=== PATIENT | female | born 1985 | race Hispanic/Latino ===

== ENCOUNTER 2018-11-21 19:44 | Inpatient (IN) | payer BC ==
[~2018-11-21] VITALS: Ht 157.5 cm; Wt 108.0 kg
--- OUTSIDE RECORDS SUMMARY | 2018-11-21 19:47 | XMS REPORT | Summary of Care ---
Author Author [facility] Organization [facility] Address Unknown Phone Unavailable Encounter NAJMA Griffith(JOCELYN) [id number] Date(s): 07/26/16 - 07/26/16 [facility] [address] [place] [address]- [phone] Discharge Diagnosis: Paresthesias Discharge Diagnosis: Ankle pain, left Discharge Diagnosis: Urinary tract infection in female Discharge Disposition: Home or Self Care Attending Physician: Bisi Seth DO Vital Signs Most recent to 1 2 oldest [Reference Range]: Height 160.02 cm (07/26/16 3:48 PM) Temperature Oral 98 DegF [96.4-99.1 DegF] (07/26/16 3:48 PM) Blood Pressure 105/54 mmHg 136/87 mmHg [90-140/60-90 mmHg] (07/26/16 5:38 PM) (07/26/16 3:48 PM) Respiratory Rate 17 BRMIN 17 BRMIN [14-20 BRMIN] (07/26/16 5:38 PM) (07/26/16 3:48 PM) Peripheral Pulse 87 bpm 95 bpm Rate [60-100 bpm] (07/26/16 5:38 PM) (07/26/16 3:48 PM) Weight 100 kg (07/26/16 3:48 PM) Body Mass Index 39.05 m2 (07/26/16 3:48 PM) Problem List Condition Effective Dates Status Health Status Informant Autoimmune Active hepatitis(Confirmed) Autoimmune Active hepatitis(Confirmed) Obesity(Confirmed) Active Allergies, Adverse Reactions, Alerts Substance Reaction Severity Status NKDA Active Medications Cipro 500 mg oral tablet 500 mg=1 tab, PO, Q12H, for UTI, X 3 day, # 6 tab, 0 Refill(s), Pharmacy: [facility] [id number] Start Date: 07/26/16 Stop Date: 07/29/16 Status: Ordered Results ELECTROLYTES Most recent to 1 oldest [Reference Range]: Sodium Lvl [135-145 139 mEq/L mEq/L] (07/26/16 5:07 PM) Potassium Lvl 3.9 mEq/L [3.5-5.1 mEq/L] (07/26/16 5:07 PM) Chloride Lvl [95-109 106 mEq/L mEq/L] (07/26/16 5:07 PM) CO2 [24-32 mEq/L] 23 mEq/L *LOW* (07/26/16 5:07 PM) AGAP [10.0-20.0 13.9 mEq/L mEq/L] (07/26/16 5:07 PM) CHEM PANEL Most recent to 1 oldest [Reference Range]: Creatinine Lvl 0.78 mg/dL [0.50-1.40 mg/dL] (07/26/16 5:07 PM) eGFR 102 mL/min/1.73m2 1 *NA* (07/26/16 5:07 PM) BUN [7-22 mg/dL] 6 mg/dL *LOW* (07/26/16 5:07 PM) B/C Ratio [6-25] 8 (07/26/16 5:07 PM) Glucose Lvl [70-99 91 mg/dL mg/dL] (07/26/16 5:07 PM) Total Protein 7.9 g/dL [6.4-8.4 g/dL] (07/26/16 5:07 PM) Albumin Lvl [3.5-5.0 3.2 g/dL g/dL] *LOW* (07/26/16 5:07 PM) Globulin [2.7-4.2 4.7 g/dL g/dL] *HI* (07/26/16 5:07 PM) A/G Ratio [0.7-1.6] 0.7 (07/26/16 5:07 PM) Calcium Lvl 8.6 mg/dL [8.5-10.5 mg/dL] (07/26/16 5:07 PM) ALT [0-65 unit/L] 31 unit/L (07/26/16 5:07 PM) AST [0-37 unit/L] 30 unit/L (07/26/16 5:07 PM) Alk Phos [39-136 71 unit/L unit/L] (07/26/16 5:07 PM) Bili Total [0.2-1.3 0.3 mg/dL mg/dL] (07/26/16 5:07 PM) 1Result Comment: The eGFR is calculated using the CKD-EPI formula. In most young, healthy individuals the eGFR will be >90 mL/min/1.73m2. The eGFR declines with age. An eGFR of 60-89 may be normal in some populations, particularly the elderly, for whom the CKD-EPI formula has not been extensively validated. Use of the eGFR is not recommended in the following populations: Individuals with unstable creatinine concentrations, including patients and those with serious co-morbid conditions. Patients with extremes in muscle mass or diet. The data above are obtained from the National Kidney Disease Education Program ( NKDEP) which additionally recommends that when the eGFR is used in patients with extremes of body mass index for purposes of drug dosing, the eGFR should be mul tiplied by the estimated BMI. CARDIAC ENZYMES Most recent to 1 oldest [Reference Range]: Total CK [12-191 82 unit/L unit/L] (07/26/16 5:07 PM) CK MB [0.5-3.6 <0.5 ng/mL ng/mL] (07/26/16 5:07 PM) CK MB Index <0.6 [0.0-2.5] (07/26/16 5:07 PM) Troponin-I <0.02 ng/mL [0.00-0.40 ng/mL] (07/26/16 5:07 PM) URINE AND STOOL Most recent to 1 oldest [Reference Range]: UA Turbidity [Clear] Clear (07/26/16 5:07 PM) UA Color [Yellow] Yellow *NA* (07/26/16 5:07 PM) UA pH [5.0-8.0] 5.0 (07/26/16 5:07 PM) UA Spec Grav 1.014 [<=1.030] (07/26/16 5:07 PM) UA Glucose [Negative Negative mg/dL mg/dL] *NA* (07/26/16 5:07 PM) UA Blood [Negative] Moderate *ABN* (07/26/16 5:07 PM) UA Ketones [Negative Negative mg/dL mg/dL] *NA* (07/26/16 5:07 PM) UA Protein [Negative Negative mg/dL mg/dL] (07/26/16 5:07 PM) UA Urobilinogen <=1.0 mg/dL [0.1-1.0 mg/dL] *NA* (07/26/16 5:07 PM) UA Bili [Negative] Negative *NA* (07/26/16 5:07 PM) UA Leuk Est Trace [Negative] *ABN* (07/26/16 5:07 PM) UA Nitrite Negative [Negative] (07/26/16 5:07 PM) UA WBC [0-5 /HPF] 6 /HPF *HI* (07/26/16 5:07 PM) UA RBC [0-2 /HPF] 1 /HPF (07/26/16 5:07 PM) UA Sq Epi [Few /LPF] Few /LPF *NA* (07/26/16 5:07 PM) HEMATOLOGY Most recent to 1 oldest [Reference Range]: WBC [3.7-10.4 K/CMM] 10.2 K/CMM (07/26/16 5:07 PM) RBC [4.20-5.40 5.06 M/CMM M/CMM] (07/26/16 5:07 PM) Hgb [12.0-16.0 g/dL] 13.7 g/dL (07/26/16 5:07 PM) Hct [36.0-48.0 %] 42.4 % (07/26/16 5:07 PM) MCV [80.0-98.0 fL] 83.9 fL (07/26/16 5:07 PM) MCH [27.0-31.0 pg] 27.1 pg (07/26/16 5:07 PM) MCHC [32.0-36.0 32.3 g/dL g/dL] (07/26/16 5:07 PM) RDW [11.5-14.5 %] 13.2 % (07/26/16 5:07 PM) Platelet [133-450 175 K/CMM K/CMM] (07/26/16 5:07 PM) MPV [7.4-10.4 fL] 11.9 fL *HI* (07/26/16 5:07 PM) Segs [45.0-75.0 %] 62.2 % (07/26/16 5:07 PM) Lymphocytes 29.8 % [20.0-40.0 %] (07/26/16 5:07 PM) Monocytes [2.0-12.0 6.7 % %] (07/26/16 5:07 PM) Eosinophils [0.0-4.0 0.6 % %] (07/26/16 5:07 PM) Basophils [0.0-1.0 0.7 % %] (07/26/16 5:07 PM) Segs-Bands # 6.3 K/CMM [1.5-8.1 K/CMM] (07/26/16 5:07 PM) Lymphocytes # 3.0 K/CMM [1.0-5.5 K/CMM] (07/26/16 5:07 PM) Monocytes # [0.0-0.8 0.7 K/CMM K/CMM] (07/26/16 5:07 PM) Eosinophils # 0.1 K/CMM [0.0-0.5 K/CMM] (07/26/16 5:07 PM) Basophils # [0.0-0.2 0.1 K/CMM K/CMM] (07/26/16 5:07 PM) PT [12.0-14.7 12.9 seconds seconds] (07/26/16 5:07 PM) INR [0.85-1.17] 0.95 (07/26/16 5:07 PM) PTT [22.9-35.8 27.2 seconds seconds] (07/26/16 5:07 PM) Immunizations No data available for this section Procedures No data available for this section Social History Social History Type Response Smoking Status Never smoker; Ready to change: No; Concerns about tobacco use in household: No; Exposure to Tobacco Smoke None; Cigarette Smoking Last 365 Days No; Reg Smoking Cessation Counseling No Assessment and Plan No data available for this section
--- OUTSIDE RECORDS SUMMARY | 2018-11-21 19:47 | XMS REPORT | Summary of Care ---
Author Author [facility] Outpatient Imaging [facility] Outpatient Imaging [facility] Address Unknown Phone Unavailable Encounter HQ Gladis(FIN) [id number] Date(s): 03/03/18 - 03/03/18 [facility] Outpatient Imaging [facility] [address], [address] [place] [phone] Encounter Diagnosis Other specified disorders of the skin and subcutaneous tissue (Final) - 03/07/18 Other specified abnormal findings of blood chemistry (Final) - Autoimmune hepatitis (Final) - Discharge Disposition: Home or Self Care Attending Physician: Allie Umanzor DO Referring Physician: Allie Umanzor DO Vital Signs No data available for this section Problem List Condition Effective Dates Status Health Status Informant Autoimmune Active hepatitis(Confirmed) Autoimmune Active hepatitis(Confirmed) Personal history of Active immunosuppressive therapy(Confirmed) LFTs Active abnormal(Confirmed) Obesity(Confirmed) Active Allergies, Adverse Reactions, Alerts Substance Reaction Severity Status NKDA Active Medications No data available for this section Results No data available for this section Immunizations No data available for this section Procedures Procedure Date Related Diagnosis Body Site Status Tonsillectomy and adenoidectomy [address] Com[address]opsy Completed CT of brain Completed EKG Completed EMG - Electromyography Completed MRI of head and cervical spine Completed Social History Social History Type Response Substance Abuse Use: None. Alcohol Current, Frequency: 1-2 times per year. Smoking Status Never smoker; Ready to change: No; Concerns about tobacco use in household: No; Exposure to Tobacco Smoke None; Cigarette Smoking Last 365 Days No; Reg Smoking Cessation Counseling No entered on: 07/23/18 Assessment and Plan No data available for this section
--- OUTSIDE RECORDS SUMMARY | 2018-11-21 19:47 | XMS REPORT | Summary of Care ---
Author Author [facility] Outpatient Imaging - [facility] Outpatient [facility] [place] Address Unknown Phone Unavailable Encounter HQ Docr_mat(FIN) [id number] Date(s): 12/20/15 - 12/20/15 [facility] Outpatient Imaging [facility] [address] [address] [place], [address] [phone] Discharge Disposition: Home Attending Physician: Mei Peña MD Vital Signs No data available for this section Problem List No data available for this section Allergies, Adverse Reactions, Alerts Substance Reaction Severity Status NKDA Active Medications No data available for this section Results No data available for this section Immunizations No data available for this section Procedures No data available for this section Social History No data available for this section Assessment and Plan No data available for this section
--- OUTSIDE RECORDS SUMMARY | 2018-11-21 19:47 | XMS REPORT | Summary of Care ---
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) - 09/04/17 Morbid (severe) obesity due to excess calories (Final) - Body mass index (BMI) 40.0-44.9, adult (Final) - Discharge Disposition: Home or Self Care Attending Physician: Mei Peña MD Vital Signs [...] Procedure Date Related Diagnosis Body Site Status CT of brain Completed EKG Completed EMG - Electromyography Completed MRI of head and cervical spine Completed Social History Social History Type Response Smoking Status Never smoker; Ready to change: No; Concerns about tobacco use in household: No; Exposure to Tobacco Smoke None; Cigarette Smoking Last 365 Days No; Reg Smoking Cessation Counseling No entered on: 06/30/17 Assessment and Plan No data available for this section
--- OUTSIDE RECORDS SUMMARY | 2018-11-21 19:47 | XMS REPORT | Summary of Care ---
Author Author [facility] Organization [facility] Address Unknown Phone Unavailable Encounter HQ Docr_mat(FIN) [id number] Date(s): 10/09/16 - 10/09/16 [facility] [address] [place] [address]- Discharge Disposition: Home or Self Care Attending Physician: Dayanara Johnson MD Referring Physician: Dayanara Johnson MD Vital Signs No data available for [...]
--- OUTSIDE RECORDS SUMMARY | 2018-11-21 19:47 | XMS REPORT | Summary of Care ---
Author Author [facility] Organization [facility] Address Unknown Phone Unavailable Encounter NAJMA Griffith(JOCELYN) [id number] Date(s): 03/07/16 - 03/07/16 [facility] [address] [place] [address]- [facility] [phone] Discharge Disposition: Home or Self Care Attending Physician: Eric Du MD Referring Physician: Eric Du MD Vital Signs Most recent to 1 oldest [Reference Range]: Height 160.02 cm (03/07/16 11:36 AM) Blood Pressure 110/78 mmHg [90-140/60-90 mmHg] (03/07/16 11:36 AM) Peripheral Pulse 94 bpm Rate [60-100 bpm] (03/07/16 11:36 AM) Weight 91.818 kg (03/07/16 11:36 AM) Body Mass Index 35.86 m2 (03/07/16 11:36 AM) Problem List Condition Effective Dates Status Health Status Informant Autoimmune Active hepatitis(Confirmed) Obesity(Confirmed) Active Allergies, Adverse Reactions, Alerts Substance Reaction Severity Status NKDA Active Medications azaTHIOprine 50 mg oral tablet 50 mg=1 tab, PO, Daily, # 30 tab, 0 Refill(s) Start Date: 03/07/16 Status: Ordered Necon 1/35 oral tablet 1 tab, PO, Daily, # 28 tab, 0 Refill(s) Start Date: 03/07/16 Status: Ordered predniSONE 20 mg oral tablet 20 mg=1 tab, PO, Daily, 0 Refill(s) Start Date: 03/07/16 Stop Date: 03/12/16 Status: Ordered predniSONE 5 mg oral tablet 20 mg=4 tab, PO, Daily, # 120 tab, 1 Refill(s), Pharmacy: [id number] Start Date: 03/07/16 Status: Ordered Results No data available for this section [...]
--- OUTSIDE RECORDS SUMMARY | 2018-11-21 19:47 | XMS REPORT | Summary of Care ---
Author Author [facility] Outpatient Imaging [facility] Outpatient Imaging - [place] Address Unknown Phone Unavailable Encounter HQ Gladis(FIN) [id number] Date(s): 03/12/18 - 03/12/18 [facility] Outpatient Imaging [facility] [address], [address] [place] [phone] Encounter Diagnosis Other specified abnormal findings of blood chemistry (Final) - 03/17/18 Autoimmune hepatitis (Final) - Discharge Disposition: Home or Self Care Attending Physician: Eric Du MD Referring Physician: Eric Du MD Vital Signs No data available for [...]
--- OUTSIDE RECORDS SUMMARY | 2018-11-21 19:47 | XMS REPORT | Summary of Care ---
Author Author [facility] Outpatient Imaging [facility] Outpatient Imaging [facility] Address Unknown Phone Unavailable Encounter HQ Docr_mat(FIN) [id number] Date(s): 08/05/16 - 08/05/16 [facility] Outpatient Imaging [facility] [address], [address] [place] [phone] Discharge Disposition: Home or Self Care Attending [...]
--- OUTSIDE RECORDS SUMMARY | 2018-11-21 19:47 | XMS REPORT | Summary of Care ---
Author Author [facility] Outpatient Imaging - [place] Organization [facility] [place] Address Unknown Phone Unavailable Encounter HQ Gladis(FIN) [id number] Date(s): 09/01/17 - 09/01/17 [facility] Outpatient Imaging - [place] [address] [place] [phone] Discharge Disposition: Home or Self Care Attending [...]
--- OUTSIDE RECORDS SUMMARY | 2018-11-21 19:47 | XMS REPORT | Summary of Care ---
Author Author [facility] Organization [facility] Address Unknown Phone Unavailable Encounter HQ Gladis(JOCELYN) [id number] Date(s): 01/29/18 - 01/29/18 [facility] [address] [place] [address]- [facility] [phone] Discharge Disposition: Home or Self Care Attending Physician: Eric Du MD Referring Physician: Eric Du MD Vital Signs Most recent to 1 oldest [Reference Range]: Height 157.48 cm (01/29/18 11:59 AM) Blood Pressure 129/83 mmHg [90-140/60-90 mmHg] (01/29/18 11:59 AM) Peripheral Pulse 90 bpm Rate [60-100 bpm] (01/29/18 11:59 AM) Weight 113.636 kg (01/29/18 11:59 AM) Body Mass Index 45.82 m2 (01/29/18 11:59 AM) Problem List Condition Effective Dates Status Health Status Informant Autoimmune Active hepatitis(Confirmed) Autoimmune Active hepatitis(Confirmed) Personal history of Active immunosuppressive therapy(Confirmed) LFTs Active abnormal(Confirmed) Obesity(Confirmed) Active Allergies, Adverse Reactions, Alerts Substance Reaction Severity Status NKDA Active Medications No Known Medications Results No data available for this section [...] Reg Smoking Cessation Counseling No entered on: 01/29/18 Assessment and Plan No data available for this section
--- OUTSIDE RECORDS SUMMARY | 2018-11-21 19:47 | XMS REPORT | Summary of Care ---
Author Author [facility] Organization [facility] Address Unknown Phone Unavailable Encounter NAJMA Griffith(JOCELYN) [id number] Date(s): 04/10/18 - 04/10/18 [facility] [address] [place] [address]- Encounter Diagnosis Anal fistula (Final) - 04/20/18 Other hemorrhoids (Final) - Autoimmune hepatitis (Final) - Major depressive disorder, single episode, unspecified (Final) - Discharge Disposition: Home or Self Care Attending Physician: Susana Urias V Referring Physician: Susana Urias V Vital Signs 1 2 3 Most recent to oldest [Reference Range]: 160.02 cm (03/30/18 7:25 AM) Height 98.2 DegF (03/30/18 7:28 AM) Temperature Oral [96.4-99.1 DegF] 128/76 mmHg (04/10/18 1:15 PM) 125/83 mmHg (04/10/18 12:41 PM) 121/82 mmHg (04/10/18 12:26 PM) Blood Pressure [90-140/60-90 mmHg] 23 BRMIN *HI* (04/10/18 12:41 PM) 17 BRMIN (04/10/18 12:26 PM) 12 BRMIN *LOW* (04/10/18 12:11 PM) Respiratory Rate [14-20 BRMIN] 113 bpm *HI* (04/10/18 10:26 AM) 84 bpm (03/30/18 7:28 AM) Peripheral Pulse Rate [60-100 bpm] 111.364 kg (03/30/18 7:25 AM) Weight 43.49 m2 (03/30/18 7:25 AM) Body Mass Index Problem List Condition Effective Dates Status Health Status Informant Autoimmune Active hepatitis(Confirmed) Autoimmune Active hepatitis(Confirmed) Personal history of Active immunosuppressive therapy(Confirmed) LFTs Active abnormal(Confirmed) Obesity(Confirmed) Active Allergies, Adverse Reactions, Alerts Substance Reaction Severity Status NKDA Active Medications ANES albuterol 0.083% inhalation solution 2.49 mg, Route: NEB, Q20Min, Dosing Weight 111.364, kg, PRN Wheezing, Priority: STAT, Start date: 04/10/18 12:13:00 CDT, Duration: 30 day, Stop date: 05/10/18 1 2:12:00 CDT Start Date: 04/10/18 Stop Date: 04/10/18 Status: Discontinued ANES dexamethasone 4 mg, Route: IVP, ONCE, Dosing Weight 111.364, kg, PRN Nausea & Vomiting, Start date: 04/10/18 12:13:00 CDT Start Date: 04/10/18 Stop Date: 04/10/18 Status: Discontinued ANES fentaNYL 50 microgram, Route: IVP, Q5Min, Dosing Weight 111.364, kg, PRN Pain Score 7-10, Priority: Routine, Start date: 04/10/18 12:13:00 CDT, Duration: 2 doses or time s, Stop date: Limited # of times Start Date: 04/10/18 Stop Date: 04/10/18 Status: Discontinued ANES fentaNYL 25 microgram, Route: IVP, Q5Min, Dosing Weight 111.364, kg, PRN Pain Score 4-6, Priority: Routine, Start date: 04/10/18 12:13:00 CDT, Duration: 4 doses or times , Stop date: Limited # of times Start Date: 04/10/18 Stop Date: 04/10/18 Status: Discontinued ANES flumazenil 0.2 mg, Route: IVP, PRN, Dosing Weight 111.364, kg, PRN Benzodiazepine Reversal, Initial dose, Start date: 04/10/18 12:13:00 CDT, Duration: 30 day, Stop date: 0 05/10/18 12:12:00 CDT Start Date: 04/10/18 Stop Date: 04/10/18 Status: Discontinued ANES naloxone 0.4 mg, Route: IVP, Q2MIN, Dosing Weight 111.364, kg, PRN Narcotic Reversal, Sta rt date: 04/10/18 12:13:00 CDT, Duration: 8 doses or times, Stop date: Limited # of times Start Date: 04/10/18 Stop Date: 04/10/18 Status: Discontinued ANES ondansetron 4 mg, Route: IVP, ONCE, Dosing Weight 111.364, kg, PRN Nausea & Vomiting, Start date: 04/10/18 12:13:00 CDT Start Date: 04/10/18 Stop Date: 04/10/18 Status: Discontinued ANES oxyCODONE 2.5 mg, Route: PO, Drug form: LIQ, Q4H, Dosing Weight 111.364, kg, PRN Pain Scor e 4-6, Start date: 04/10/18 12:13:00 CDT, Duration: 30 day, Stop date: 05/10/18 12:12:00 CDT Start Date: 04/10/18 Stop Date: 04/10/18 Status: Discontinued ANES oxyCODONE 5 mg, Route: PO, Drug form: LIQ, Q4H, Dosing Weight 111.364, kg, PRN Pain Score 7-10, Start date: 04/10/18 12:13:00 CDT, Duration: 30 day, Stop date: 05/10/18 1 2:12:00 CDT Start Date: 04/10/18 Stop Date: 04/10/18 Status: Discontinued dexamethasone (ANES) Route: IV, Drug form: INJ, ONCE, Stop date: 04/10/18 11:53:00 CDT Start Date: 04/10/18 Stop Date: 04/10/18 Status: Completed esmolol (ANES) Route: IV, Drug form: INJ, ONCE, Stop date: 04/10/18 11:55:00 CDT Start Date: 04/10/18 Stop Date: 04/10/18 Status: Completed Exparel 266 mg, Route: InFILtration(local), Dosing Weight 111.364, kg, ONCE, Start date: 04/10/18 9:32:00 CDT, Stop date: 04/10/18 9:32:00 CDT Start Date: 04/10/18 Stop Date: 04/10/18 Status: Discontinued fentaNYL (ANES) Route: IV, Drug form: INJ, ONCE, Stop date: 04/10/18 11:53:00 CDT Start Date: 04/10/18 Stop Date: 04/10/18 Status: Completed glycopyrrolate (ANES) Route: IV, Drug form: INJ, ONCE, Stop date: 04/10/18 12:02:00 CDT Start Date: 04/10/18 Stop Date: 04/10/18 Status: Completed Lactated Ringers Injection IV (ANES) 1000 mL Route: IV, Total Volume: 1,000, Start date: 04/10/18 10:50:00 CDT, Stop date: 11:50:00 CDT Start Date: 04/10/18 Stop Date: 04/10/18 Status: Completed Lactated Ringers IV 1000 mL 1,000 mL, Rate: 25 ml/hr, Infuse over: 40 hr, Route: IV, Dosing Weight 111.364 k g, Total Volume: 1,000, Start date: 04/10/18 10:48:00 CDT, Duration: 30 day, Sto p date: 05/10/18 10:47:00 CDT, 2.27, m2 Start Date: 04/10/18 Stop Date: 04/10/18 Status: Discontinued lidocaine (ANES) Route: IV, Drug form: INJ, ONCE, Stop date: 04/10/18 11:53:00 CDT Start Date: 04/10/18 Stop Date: 04/10/18 Status: Completed metoprolol (ANES) Route: IV, Drug form: INJ, ONCE, Stop date: 04/10/18 11:55:00 CDT Start Date: 04/10/18 Stop Date: 04/10/18 Status: Completed midazolam (ANES) Route: IV, Drug form: SOLN, ONCE, Stop date: 04/10/18 11:48:00 CDT Start Date: 04/10/18 Stop Date: 04/10/18 Status: Completed neostigmine (ANES) Route: IV, Drug form: INJ, ONCE, Stop date: 04/10/18 12:02:00 CDT Start Date: 04/10/18 Stop Date: 04/10/18 Status: Completed ondansetron (ANES) Route: IV, Drug form: INJ, ONCE, Stop date: 04/10/18 11:53:00 CDT Start Date: 04/10/18 Stop Date: 04/10/18 Status: Completed oxyCODONE 5 mg oral tablet 5 mg=1 tab, PO, Q6H, PRN Pain, X 7 day, # 20 tab, 0 Refill(s) Start Date: 04/10/18 Stop Date: 04/17/18 Status: Completed propofol (ANES) Route: IV, Drug form: INJ, ONCE, Stop date: 04/10/18 11:53:00 CDT Start Date: 04/10/18 Stop Date: 04/10/18 Status: Completed rocuronium (ANES) Route: IV, Drug form: INJ, ONCE, Stop date: 04/10/18 11:53:00 CDT Start Date: 04/10/18 Stop Date: 04/10/18 Status: Completed scopolamine (ANES) Route: Transdermal, Drug form: ERFILM, ONCE, Stop date: 04/10/18 11:53:00 CDT Start Date: 04/10/18 Stop Date: 04/10/18 Status: Completed Results URINE CHEM Most recent to 1 oldest [Reference Range]: U Preg [Negative] Negative (04/10/18 9:31 AM) URINE AND STOOL Most recent to 1 oldest [Reference Range]: UA Turbidity [Clear] Marked *ABN* (03/30/18 7:55 AM) UA Color Yulissa *NA* (03/30/18 7:55 AM) UA pH [5.0-8.0] 5.0 (03/30/18 7:55 AM) UA Spec Grav 1.020 [<=1.030] (03/30/18 7:55 AM) UA Glucose [Negative Negative mg/dL mg/dL] *NA* (03/30/18 7:55 AM) UA Blood [Negative] Negative (03/30/18 7:55 AM) UA Ketones [Negative Negative mg/dL mg/dL] *NA* (03/30/18 7:55 AM) UA Protein [Negative Negative mg/dL mg/dL] (03/30/18 7:55 AM) UA Urobilinogen 4.0 mg/dL [0.1-1.0 mg/dL] *HI* (03/30/18 7:55 AM) UA Bili [Negative] Negative *NA* (03/30/18 7:55 AM) UA Leuk Est Negative [Negative] (03/30/18 7:55 AM) UA Nitrite Negative [Negative] (03/30/18 7:55 AM) UA WBC [0-5 /HPF] 9 /HPF *HI* (03/30/18 7:55 AM) UA RBC [0-2 /HPF] 2 /HPF (03/30/18 7:55 AM) UA Bacteria [None Moderate /HPF Seen /HPF] *ABN* (03/30/18 7:55 AM) UA Sq Epi [Few /LPF] Moderate /LPF *ABN* (03/30/18 7:55 AM) UA Mucus [None Seen Few /LPF /LPF] *NA* (03/30/18 7:55 AM) HEMATOLOGY Most recent to 1 oldest [Reference Range]: WBC [3.7-10.4 K/CMM] 10.6 K/CMM *HI* (03/30/18 7:55 AM) RBC [4.20-5.40 4.97 M/CMM M/CMM] (03/30/18 7:55 AM) Hgb [12.0-16.0 g/dL] 13.2 g/dL (03/30/18 7:55 AM) Hct [36.0-48.0 %] 39.8 % (03/30/18 7:55 AM) MCV [80.0-98.0 fL] 80.1 fL (03/30/18 7:55 AM) MCH [27.0-31.0 pg] 26.6 pg *LOW* (03/30/18 7:55 AM) MCHC [32.0-36.0 33.2 g/dL g/dL] (03/30/18 7:55 AM) RDW [11.5-14.5 %] 14.8 % *HI* (03/30/18 7:55 AM) MPV [7.4-10.4 fL] 11.8 fL *HI* (03/30/18 7:55 AM) Platelet [133-450 113 K/CMM K/CMM] *LOW* (03/30/18 7:55 AM) Segs [45.0-75.0 %] 58.8 % (03/30/18 7:55 AM) Lymphocytes 31.6 % [20.0-40.0 %] (03/30/18 7:55 AM) Monocytes [2.0-12.0 7.4 % %] (03/30/18 7:55 AM) Eosinophils [0.0-4.0 1.6 % %] (03/30/18 7:55 AM) Basophils [0.0-1.0 0.6 % %] (03/30/18 7:55 AM) Neutrophils # 6.2 K/CMM [1.5-8.1 K/CMM] (03/30/18 7:55 AM) Lymphocytes # 3.3 K/CMM [1.0-5.5 K/CMM] (03/30/18 7:55 AM) Monocytes # [0.0-0.8 0.8 K/CMM K/CMM] (03/30/18 7:55 AM) Eosinophils # 0.2 K/CMM [0.0-0.5 K/CMM] (03/30/18 7:55 AM) Basophils # [0.0-0.2 0.1 K/CMM K/CMM] (03/30/18 7:55 AM) PT [12.0-14.7 13.7 seconds seconds] (03/30/18 7:55 AM) INR [0.85-1.17] 1.05 (03/30/18 7:55 AM) PTT [22.9-35.8 27.3 seconds seconds] (03/30/18 7:55 AM) Immunizations No data available for this section [...]
--- OUTSIDE RECORDS SUMMARY | 2018-11-21 19:47 | XMS REPORT | Summary of Care ---
Author Author [facility] Organization [facility] Address Unknown Phone Unavailable Encounter NAJMA Griffith(JOCELYN) [id number] Date(s): 11/21/16 - 11/21/16 [facility] [address] [place] [address]- [facility] [phone] Discharge Disposition: Home or Self Care Attending Physician: Eric Du MD Referring Physician: Eric Du MD Vital Signs Most recent to 1 oldest [Reference Range]: Height 160.02 cm (11/21/16 3:11 PM) Blood Pressure 117/80 mmHg [90-140/60-90 mmHg] (11/21/16 3:11 PM) Respiratory Rate 16 BRMIN [14-20 BRMIN] (11/21/16 3:11 PM) Peripheral Pulse 101 bpm Rate [60-100 bpm] *HI* (11/21/16 3:11 PM) Weight 104.091 kg (11/21/16 3:11 PM) Body Mass Index 40.65 m2 (11/21/16 3:11 PM) Problem List Condition Effective Dates Status Health Status Informant Autoimmune Active hepatitis(Confirmed) Autoimmune Active hepatitis(Confirmed) Obesity(Confirmed) Active Allergies, Adverse Reactions, Alerts Substance Reaction Severity Status NKDA Active Medications No Known Medications Results No data available for this section Immunizations No data available for this section Procedures Procedure Date Related Diagnosis Body Site CT of brain EKG EMG - Electromyography MRI of head and cervical spine Social History Social History Type Response Smoking Status Never smoker; Ready to change: No; Concerns about tobacco use in household: No; Exposure to Tobacco Smoke None; Cigarette Smoking Last 365 Days No; Reg Smoking Cessation Counseling No Assessment and Plan No data available for this section
--- OUTSIDE RECORDS SUMMARY | 2018-11-21 19:47 | XMS REPORT | Summary of Care ---
Author Author [facility] Address Unknown Phone Unavailable Encounter NAJMA Griffith(FIN) [id number] Date(s): 06/06/17 - 06/06/17 [facility] Outpatient Imaging [facility] [address], [address] [place] [phone] Discharge Disposition: Home or Self Care Attending [...]
--- OUTSIDE RECORDS SUMMARY | 2018-11-21 19:47 | XMS REPORT | Summary of Care ---
Author Author [facility] Organization [facility] Address Unknown Phone Unavailable Encounter NAJMA Griffith(JOCELYN) [id number] Date(s): 06/30/17 - 06/30/17 [facility] [address] [place], [place] [address] [phone] Discharge Disposition: Home or Self Care Attending Physician: Eric Du MD Referring Physician: Eric Du MD Vital Signs 1 2 3 Most recent to oldest [Reference Range]: 160.02 cm (06/30/17 9:41 AM) Height 116/73 mmHg (06/30/17 2:00 PM) 109/70 mmHg (06/30/17 1:45 PM) 109/69 mmHg (06/30/17 1:30 PM) Blood Pressure [90-140/60-90 mmHg] 17 BRMIN (06/30/17 2:00 PM) 20 BRMIN (06/30/17 1:45 PM) 20 BRMIN (06/30/17 1:30 PM) Respiratory Rate [14-20 BRMIN] 100 kg (06/30/17 9:41 AM) Weight 39.05 m2 (06/30/17 9:41 AM) Body Mass Index Problem List Condition Effective Dates Status Health Status Informant Autoimmune Active hepatitis(Confirmed) Autoimmune Active hepatitis(Confirmed) Personal history of Active immunosuppressive therapy(Confirmed) LFTs Active abnormal(Confirmed) Obesity(Confirmed) Active Allergies, Adverse Reactions, Alerts Substance Reaction Severity Status NKDA Active Medications fentaNYL 50 microgram, Route: IV, ONCE, Dosing Weight 100, kg, Start date: 06/30/17 10:55 :00 [employer], Stop date: 06/30/17 10:55:00 [employer]NAGER [employer], Start Date: 06/30/17 Stop Date: 06/30/17 Status: Completed fentaNYL 50 microgram, Route: IV, ONCE, Dosing Weight 100, kg, Start date: 06/30/17 11:00 :00 [employer]NAGER [employer], Stop date: 06/30/17 11:00:00 [employer]NAGER [employer], Start Date: 06/30/17 Stop Date: 06/30/17 Status: Completed tramadol 50 mg oral tablet 50 mg, 1 tab, Route: PO, Drug form: TAB, ONCE, Dosing Weight 100, kg, Start date : 06/30/17 13:28:00 MANAGER ETHICS, Stop date: 06/30/17 13:28:00 [employer]NAGER [employer]ICS Start Date: 06/30/17 Stop Date: 06/30/17 Status: Completed Versed 1 mg, Route: IV, ONCE, Dosing Weight 100, kg, Start date: 06/30/17 11:00:00 MANAGER ETHICS, Stop date: 06/30/17 11:00:00 MANAGER [employer]ICS Start Date: 06/30/17 Stop Date: 06/30/17 Status: Completed Versed 1 mg, Route: IV, ONCE, Dosing Weight 100, kg, Start date: 06/30/17 10:55:00 MANAGER ETHICS, Stop date: 06/30/17 10:55:00 MANAGER [employer]ICS Start Date: 06/30/17 Stop Date: 06/30/17 Status: Completed Results URINE CHEM Most recent to 1 oldest [Reference Range]: U Preg [Negative] Negative (06/30/17 9:49 AM) Immunizations No data available for this section Procedures Procedure Date Related Diagnosis Body Site Biopsy of liver, needle; percutaneous 06/30/17 Fine needle aspiration; with imaging guidance 06/30/17 CT of brain EKG EMG - Electromyography MRI of head and cervical spine Social History Social History Type Response Smoking Status Never smoker; Ready to change: No; Concerns about tobacco use in household: No; Exposure to Tobacco Smoke None; Cigarette Smoking Last 365 Days No; Reg Smoking Cessation Counseling No Assessment and Plan Extracted from: Title: Clinical Document Author: Eliecer Peck MD Date: 06/30/17 Interventional Radiology History and Physical History of Present Illness: LN lneck and elevated kiver enzymes Past Medical History No qualifying data available Past Surgical History CT of brain EMG - Electromyography MRI of head and cervical spine EKG Social History Tobacco Details: Use: Never smoker. Ready to change: No. Household tobacco concerns: No. Tobacco smoke exposure: None. Did the Patient Smoke Cigarettes Anytime During the Last 365 Days? No. Cessation Counseling Provided? No. Family History Father: High blood pressure Mother: Thyroid disease Allergies Reviewed Allergies: NKDA Current Medications Scheduled Meds: None Unscheduled Meds: None PRN Meds: None One Time Meds: None Continuous Infusions: None Labs (no lab data in past 24 hours) Review of Systems Constitutional Symptoms: no fever, no weight loss, no weight gain, no fatigue, no malaise Eyes: no diplopia, no blurred vision, no redness, no discharge, no loss of vision Ears, Nose, Mouth, Throat: no dysphagia, no odynophagia, no otalgia, no deafness, no rhinorrhea Cardiovascular: no chest pain, no SOB, no WALTERS, no orthopnea, no PND, exercise tolerated, no palpitations Respiratory: same as CVS, no cough, no hemoptysis Gastrointestinal: no NVD, no BPR, no dark stool, no constipation, no abdominal pain Genitourinary: no dysuria, no frequency, no urgency, no nocturia, no incontinence Musculoskeletal: no arthralgia, no myalgia, no stiffness Integumentary: (skin and/or breast): no rash, no hives, no breast pain, no mass, no nipple dc Neurological: no weakness, no headache, no seizure, no dizziness, no tingling, no numbness Psychiatric: no anxiety, no depression, no insomnia Endocrine: no polyuria, no polydipsia, no fatigue, no weight loss, no weight gain, no cold or heat intolerance, no palpitations Hematologic/Lymphatic: no bleeding, no bruising, no edema, no lumps (axilla groin neck) Allergic/Immunologic: no rash, no allergies, no fever, no chills Vital Signs VitalsTmp(F)Tmp(C)[id number] (no data in last 48 hours) 24 Hr Tmax: No Data AvailableVital Signs are the last 5 in the past 48 hours. 24 Hr Tmin: No Data AvailableWeights are the last 5 in 60 days, plus initial. DateWt(kg)Wt(lb)Ht(cm)Ht(in)MethodBMIBSA (no weights recorded) (no point of care glucose results charted in last 24 hours) (no score information charted) (no lines, tubes, drains information documented) (no surgical procedures documented) Physical Examination Gen: Active, alert, well developed, well nourished, in no acute distress Resp: Clear to auscultation s CV: RRR, with Abd: Soft, non-tender, non-distended, BS present, no palpable masses or HSM Neuro: CNII-XII intact, DT Assessment/Plan: non target liver biopsy and biopsy lymph node in neck Addendum labs from april 2017 ok plt 107k and inr .9 by Eliecer Peck MD on 06/30/2017 09:32
--- OUTSIDE RECORDS SUMMARY | 2018-11-21 19:47 | XMS REPORT | Summary of Care ---
Author Author [facility] Organization [facility] Address Unknown Phone Unavailable Encounter NAJMA Griffith(JOCELYN) [id number] Date(s): 06/06/16 - 06/06/16 [facility] [address] [place] [address]- [facility] [phone] Discharge Disposition: Home or Self Care Attending Physician: Eric Du MD Referring Physician: Eric Du MD Vital Signs Most recent to 1 oldest [Reference Range]: Height 160.02 cm (06/06/16 3:01 PM) Blood Pressure 120/79 mmHg [90-140/60-90 mmHg] (06/06/16 3:01 PM) Respiratory Rate 16 BRMIN [14-20 BRMIN] (06/06/16 3:01 PM) Peripheral Pulse 90 bpm Rate [60-100 bpm] (06/06/16 3:01 PM) Weight 101.136 kg (06/06/16 3:01 PM) Body Mass Index 39.5 m2 (06/06/16 3:01 PM) Problem List Condition Effective Dates Status Health Status Informant Autoimmune Active hepatitis(Confirmed) Obesity(Confirmed) Active Allergies, Adverse Reactions, Alerts Substance Reaction Severity Status NKDA Active Medications azaTHIOprine 50 mg oral tablet 50 mg=1 tab, PO, Daily, # 30 tab, 3 Refill(s), Pharmacy: [facility] Start Date: 04/26/16 Status: Ordered Results No data available for [...]
--- OUTSIDE RECORDS SUMMARY | 2018-11-21 19:47 | XMS REPORT | Summary of Care ---
Author Author [facility] Organization [facility] Address Unknown Phone Unavailable Encounter NAJMA Griffith(JOCELYN) [id number] Date(s): 05/22/17 - 05/22/17 [facility] [address] [place] [address]- [facility] [phone] Discharge Disposition: Home or Self Care Attending Physician: Eric Du MD Referring Physician: Eric Du MD Vital Signs Most recent to 1 oldest [Reference Range]: Height 160.02 cm (05/22/17 3:01 PM) Blood Pressure 112/77 mmHg [90-140/60-90 mmHg] (05/22/17 3:01 PM) Respiratory Rate 18 BRMIN [14-20 BRMIN] (05/22/17 3:01 PM) Peripheral Pulse 82 bpm Rate [60-100 bpm] (05/22/17 3:01 PM) Weight 100 kg (05/22/17 3:01 PM) Body Mass Index 39.05 m2 (05/22/17 3:01 PM) Problem List Condition Effective Dates Status Health Status Informant Autoimmune Active hepatitis(Confirmed) Autoimmune Active hepatitis(Confirmed) Personal history of Active immunosuppressive therapy(Confirmed) Obesity(Confirmed) Active Allergies, Adverse Reactions, Alerts Substance [...]
[2018-11-21 21:11] LABS: BASOPHILS % 0.2 % (0.0-1.0); EOSINOPHILS # (AUTO) 0.1 (0.0-0.4); EOSINOPHILS % 0.7 % (0.0-6.0); HEMATOCRIT 42.9 % (34.2-44.1); HEMOGLOBIN 13.8 g/dL (12.0-16.0); LYMPHOCYTES # (AUTO) 4.7 (1.0-3.2); LYMPHOCYTES % 27.2 % (18.0-39.1); MEAN CORPUSCULAR HGB CONC 32.2 g/dL (31-35); MEAN CORPUSCULAR VOLUME 80.8 fL (81-99); MONOCYTES % 5.5 % (4.4-11.3); NEUTROPHILS # (AUTO) 11.5 (2.1-6.9); PLATELET COUNT 171 x10e3/uL (140-360); RED BLOOD COUNT 5.31 x10e6/uL (3.6-5.1); RED CELL DISTRIBUTION WIDTH 13.3 % (11.7-14.4)
[2018-11-21 21:31] LABS: ALANINE AMINOTRANSFERASE 20 IU/L (0-55); ALBUMIN 3.2 g/dL (3.5-5.0); ALBUMIN/GLOBULIN RATIO 0.6 (0.8-2.0); ALKALINE PHOSPHATASE 84 IU/L (40-150); ANION GAP 13.4 mmol/L (8-16); BLOOD UREA NITROGEN 6 mg/dL (7-26); BUN/CREATININE RATIO 7 (6-25); CALCIUM 9.8 mg/dL (8.4-10.2); CARBON DIOXIDE 25 mmol/L (22-29); CHLORIDE 101 mmol/L (98-107); CREATININE, SERUM 0.82 mg/dL (0.57-1.11); EST GLOMERULAR FILTRATION RATE > 60 ML/MIN (60-); GLUCOSE 117 mg/dL (74-118); POTASSIUM 4.4 mmol/L (3.5-5.1); SODIUM 135 mmol/L (136-145)
[2018-11-21] MEDS ORDERED: SODIUM CHLORIDE 0.9% 50ML 50 ML ONE (22:25)
[2018-11-21] MEDS ORDERED: IOPAMIDOL 370 MG/ML 200 ML INFUS..BTL INJ ONE (22:25)
--- NOTE | 2018-11-21 22:31 | Diagnostic Imaging Report ---
History: Left neck swelling for 3 weeks. Comparison studies: None Technique: Axial, coronal and sagittal images from the skull base to the thoracic inlet. Coronal and sagittal images reconstructed from the axial data. Dose modulation, iterative reconstruction, and/or weight based adjustment of the mA/kV was utilized to reduce the radiation dose to as low as reasonably achievable. Intravenous contrast: 100 cc of Isovue 370. Findings: Soft tissues: Moderate asymmetric enlargement of left parotid gland associated with heterogeneous enhancement and focal subcentimeter peripheral rim-enhancing hypodensity, particularly in the posterior and lateral aspect of the superficial lobe of left parotid gland the largest peripheral rim-enhancing hypodensity measures approximately 7 mm in long axis. Mild periparotid subcutaneous soft tissue inflammatory changes. The airway is patent. Lymph nodes: Enlarged nonnecrotic, noncalcified left level 2A lymph node, approximately measures 3 cm in long axis. Vessels: Arteries and veins are patent. Glands (thyroid and submandibular): Normal in size and symmetric. No masses. No abnormality in right parotid gland. Orbits: No abnormalities. Paranasal sinuses: Clear. Temporal bones: No abnormalities. Skull base and facial bones: Intact. Cervical spine: No significant abnormality. IMPRESSION: 1. Moderately enlarged and heterogeneous enhancing left parotid gland with multifocal peripheral rim-enhancing hypodensity, raises concern for parotitis with intraparotid abscess. 2. Mild overlying periparotid cellulitis. 3. Enlarged left level 2A lymph node, is likely reactive. Signed by: Dr. Holly Biggs M.D. on 11/21/2018 10:27 PM
[2018-11-21] MEDS ORDERED: ONDANSETRON HCL INJ 2MG/ML 2ML 2 MG/ML VIAL IV STA (22:44)
[2018-11-21] MEDS ORDERED: CEFDINIR300 MG PO (22:49)
[2018-11-21] MEDS ORDERED: NORTREL1 EAC1 PO (22:49)
[2018-11-21] MEDS ORDERED: CLINDAMYCIN HC300 MG PO (22:49)
[2018-11-21] MEDS ORDERED: TACROLIMUS1 MG PO (22:49)
[2018-11-21] MEDS ORDERED: MYCOPHENOLATE250 MG PO (22:49)
[2018-11-21] MEDS ORDERED: ONDANSETRON HCL INJ 2MG/ML 2ML 2 MG/ML VIAL IV PRN (23:00)
[2018-11-21] MEDS ORDERED: MORPHINE SULFATE 2 MG/ML SYR 1ML IV PRN (23:00)
[2018-11-21] MEDS ORDERED: SODIUM CHLORIDE FLUSH 10 ML SYR INJ PRN (23:00)
[2018-11-21] MEDS ORDERED: ACETAMINOPHEN 1000 MG/100 ML IV STA (23:01)
[2018-11-21] MEDS: MORPHINE SULFATE INJ 4 MG/ML INJ 1ML IV PRN (23:02)
[2018-11-21] MEDS: PIPER-TAZ 3.375 GM 50 ML IV SCH (23:02)
--- NOTE | 2018-11-21 23:02 | NUR ---
DR HARLEY AWARE OF VS
--- OUTSIDE RECORDS SUMMARY | 2018-11-21 23:11 | XMS REPORT ---
Author [facility] Address Unknown Phone Unavailable Care Team Providers Care Psychiatry Resident Name Role Phone Jasmine HARLEY Unavailable Unavailable Problems This patient has no known problems. Allergies, Adverse Reactions, Alerts This patient has no known allergies or adverse reactions. Medications This patient has no known medications. Results Test Description Test Time Test Comments Text Results Atomic Results Result Comments CT SOFT TISSUE NECK W 2018-11-21 22:10:00 [place] [address] Patient Name: KLAUS HOFF MR #: [id number] : 1985 Age/Sex: 32/F Req #: [id number] Adm Physician: Ordered by: KYLAH BROWNE PUBLIC [employer] STAFF NURSE Report #: [id number] Location: ER Room/Bed: Procedure: [id number] CT/CT SOFT TISSUE NECK W Exam Date: 11/21/18 Exam Time: 2150 REPORT STATUS: Signed History: Left neck swelling for 3 weeks. Compar pedro pablo studies: None Technique: Axial, coronal and sagittal images from the skull base to the thoracic inlet. Coronal and sagittal images reconstructed from the axial data. Dose modulation, iterative reconstruction, and/or weight based adjustment of the mA/kV was utilized to reduce the radiation dose to as low as reasonably achievable. Intravenous contrast: 100 cc of Isovue 370. Findings: Soft tissues: Moderate asymmetric enlargement of left parotid gland associated with heterogeneous enhancement and focal subcentimeter peripheral rim-enhancing hypodensity, particularly in the posterior and lateral aspect of the superficial lobe of left parotid gland the largest peripheral rim-enhancing hypodensity measures approximately 7 mm in long axis. Mild periparotid subcutaneous soft tissue inflammatory changes. The airway is patent. Lymph nodes: Enlarged nonnecrotic, noncalcified left level 2A lymph node, approximately measures 3 cm in long axis. Vessels: Arteries and veins are patent. Glands (thyroid and submandibular): Normal in size and symmetric. No masses. No abnormality in right parotid gland. Orbits: No abnormalities. Paranasal sinuses: Clear. Temporal bones: No abnormalities. Skull base and facial bones: Intact. Cervical spine: No significant abnormality. IMPRESSION: 1. Moderately enlarged and heterogeneous enhancing left parotid gland with multifocal peripheral rim-enhancing hypodensity, raises concern for parotitis with intraparotid abscess. 2. Mild overlying periparotid cellulitis. 3. Enlarged left level 2A lymph node, is likely reactive. Signed by: Dr. Holly Biggs M.D. on 11/21/2018 10:27 PM Dictated By: HOLLY BIGGS MD 26 Transcribed By: JIAN on 11/21/182226 COPY TO: KYLAH BROWNE NP
--- OUTSIDE RECORDS SUMMARY | 2018-11-21 23:11 | XMS REPORT | Continuity of Care Document ---
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 10/28/2018 [facility] BEDDED OUTPATIENT/ TRANSJUGULAR LIVER BI Active 03/24/2018 [facility] Other specified abnormal findings of blood chemistry 03/18/2018 09/29/2018 [facility] UNK Active 03/16/2018 [facility] Other specified disorders of the skin and subcutaneous tissue 03/08/2018 [facility]/20[facility] Active 02/09/2018 [facility] PAIN Active 12/26/2017 [facility] oysterman use of systemic steroids 09/05/2017 12/08/2017 [facility]/ LIVER BIOPSY NONE TAR Active 06/26/2017 [facility] DDC-6 MONTH F/U VISIT Active 11/29/2016 [facility] DX: R20.9=UNSPECIFIED DISTURBANCES OF SK Active 10/01/2016 [facility] R20.9 - UNSPECIFIED DISTURBANCES OF SK Active 09/23/2016 K[facility] Wallace Discharge Diagnosis: Paresthesias 07/26/2016 07/29/2016 [facility] Discharge Diagnosis: Ankle pain, left 07/26/2016 07/29/2016 [facility] Discharge Diagnosis: Urinary tract infection in female 07/26/2016 07/29/2016 [facility] CHEST PAIN Active 07/26/2016 [facility] F/U Active 06/26/2016 [facility] 3 MONTH F/U Active 03/07/2016 [facility] BDDC - F/U Active 02/12/2016 [facility] R79.89 - OTHER SPECIFIED ABNORMAL FINDI Active 12/20/2015 [facility] Autoimmune hepatitis Active Problem 10/28/2018 KASH Ozuna,[facility] Obesity Active Problem 10/28/2018 KASH Ozuna,[facility] Morbid obesity due to excess calories 12/08/2017 KASH Wallace Body mass index 40.0-44.9, adult 12/08/2017 K[facility] Wallace Other hemorrhoids 10/28/2018 [facility] Autoimmune hepatitis 10/28/2018 KASH Ozuna,[facility] Major depressive disorder, single episode, unspecified 10/28/2018 [facility] Personal history of immunosuppressive therapy Active Problem 10/28/2018 [facility] [place] [place] LFTs abnormal Active Problem 10/28/2018 [facility] Spenceore,[facility], KASH Wallace,[facility] Medications Medication Details Route Status Patient Instructions Ordering Provider Order Date Source Naloxone 0.4 mg, Route: IVP, Q2MIN, Dosing Weight 111.364, kg, PRN Narcotic Reversal, Start date: 04/10/18 12:13:00 CDT, Duration: 8 doses or times, Stop date: Limited # of times Inactive 04/10/2018 [facility] Oxycodone 2.5 mg, Route: PO, Drug form: LIQ, Q4H, Dosing Weight 111.364, kg, PRN Pain Score 4-6, Start date: 04/10/18 12:13:00 CDT, Duration: 30 day, Stop date: 05/10/18 12:12:00 CDT Inactive 04/10/2018 [facility] Flumazenil 0.2 mg, Route: IVP, PRN, Dosing Weight 111.364, kg, PRN Benzodiazepine Reversal, Initial dose, Start date: 04/10/18 12:13:00 CDT, Duration: 30 day, Stop date: 05/10/18 12:12:00 CDT Inactive 04/10/2018 [facility] Fentanyl 50 microgram, Route: IVP, Q5Min, Dosing Weight 111.364, kg, PRN Pain Score 7-10, Priority: Routine, Start date: 04/10/18 12:13:00 CDT, Duration: 2 doses or times, Stop date: Limited # of times Inactive 04/10/2018 [facility] Albuterol 0.83 MG/ML Inhalant Solution 2.49 mg, Route: NEB, Q20Min, Dosing Weight 111.364, kg, PRN Wheezing, Priority: STAT, Start date: 04/10/18 12:13:00 CDT, Duration: 30 day, Stop date: 05/10/18 12:12:00 CDT Inactive 04/10/2018 [facility] Ondansetron 4 mg, Route: IVP, ONCE, Dosing Weight 111.364, kg, PRN Nausea & Vomiting, Start date: 04/10/18 12:13:00 CDT Inactive 04/10/2018 [facility] Dexamethasone 4 mg, Route: IVP, ONCE, Dosing Weight 111.364, kg, PRN Nausea & Vomiting, Start date: 04/10/18 12:13:00 CDT Inactive 04/10/2018 [facility] neostigmine (ANES) Route: IV, Drug form: INJ, ONCE, Stop date: 04/10/18 12:02:00 CDT Inactive 04/10/2018 [facility] glycopyrrolate (ANES) Route: IV, Drug form: INJ, ONCE, Stop date: 04/10/18 12:02:00 CDT Inactive 04/10/2018 [facility] Oxycodone Hydrochloride 5 MG Oral Tablet 5 mg=1 tab, PO, Q6H, PRN Pain, X 7 day, # 20 tab, 0 Refill(s) No Longer Active 04/10/2018 [facility] metoprolol (ANES) Route: IV, Drug form: INJ, ONCE, Stop date: 04/10/18 11:55:00 CDT Inactive 04/10/2018 [facility] esmolol (ANES) Route: IV, Drug form: INJ, ONCE, Stop date: 04/10/18 11:55:00 CDT Inactive 04/10/2018 [facility] dexamethasone (ANES) Route: IV, Drug form: INJ, ONCE, Stop date: 04/10/18 11:53:00 CDT Inactive 04/10/2018 [facility] ondansetron (ANES) Route: IV, Drug form: INJ, ONCE, Stop date: 04/10/18 11:53:00 CDT Inactive 04/10/2018 [facility] rocuronium (ANES) Route: IV, Drug form: INJ, ONCE, Stop date: 04/10/18 11:53:00 CDT Inactive 04/10/2018 [facility] propofol (ANES) Route: IV, Drug form: INJ, ONCE, Stop date: 04/10/18 11:53:00 CDT Inactive 04/10/2018 [facility] scopolamine (ANES) Route: Transdermal, Drug form: ERFILM, ONCE, Stop date: 04/10/18 11:53:00 CDT Inactive 04/10/2018 [facility] fentaNYL (ANES) Route: IV, Drug form: INJ, ONCE, Stop date: 04/10/18 11:53:00 CDT Inactive 04/10/2018 [facility] lidocaine (ANES) Route: IV, Drug form: INJ, ONCE, Stop date: 04/10/18 11:53:00 CDT Inactive 04/10/2018 [facility] midazolam (ANES) Route: IV, Drug form: SOLN, ONCE, Stop date: 04/10/18 11:48:00 CDT Inactive 04/10/2018 [facility] Lactated Ringers Injection IV (ANES) 1000 mL Route: IV, Total Volume: 1,000, Start date: 04/10/18 10:50:00 CDT, Stop date: 04/10/18 11:50:00 CDT Inactive 04/10/2018 [facility] Lactated Ringers IV 1000 mL 1,000 mL, Rate: 25 ml/hr, Infuse over: 40 hr, Route: IV, Dosing Weight 111.364 kg, Total Volume: 1,000, Start date: 04/10/18 10:48:00 CDT, Duration: 30 day, Stop date: 05/10/18 10:47:00 CDT, 2.27, m2 Inactive 04/10/2018 [facility] Exparel 266 mg, Route: InFILtration(local), Dosing Weight 111.364, kg, ONCE, Start date: 04/10/18 9:32:00 CDT, Stop date: 04/10/18 9:32:00 CDT Inactive 04/10/2018 [facility] tramadol hydrochloride 50 MG Oral Tablet 50 mg, 1 tab, Route: PO, Drug form: TAB, ONCE, Dosing Weight 100, kg, Start date: 06/30/17 13:28:00 MEDIA OPERATOR, Stop date: 06/30/17 13:28:00 MEDIA OPERATOR Inactive 06/30/2017 [facility] Versed 1 mg, Route: IV, ONCE, Dosing Weight 100, kg, Start date: 06/30/17 11:00:00 MEDIA OPERATOR, Stop date: 06/30/17 11:00:00 MEDIA OPERATOR Inactive 06/30/2017 [facility] Fentanyl 50 microgram, Route: IV, ONCE, Dosing Weight 100, kg, Start date: 06/30/17 11:00:00 MEDIA OPERATOR, Stop date: 06/30/17 11:00:00 MEDIA OPERATOR, Inactive 06/30/2017 [facility] Fentanyl 50 microgram, Route: IV, ONCE, Dosing Weight 100, kg, Start date: 06/30/17 10:55:00 MEDIA OPERATOR, Stop date: 06/30/17 10:55:00 MEDIA OPERATOR, Inactive 06/30/2017 [facility] Versed 1 mg, Route: IV, ONCE, Dosing Weight 100, kg, Start date: 06/30/17 10:55:00 MEDIA OPERATOR, Stop date: 06/30/17 10:55:00 MEDIA OPERATOR Inactive 06/30/2017 [facility] Ciprofloxacin 500 MG Oral Tablet [Cipro] 500 mg=1 tab, PO, Q12H, for UTI, X 3 day, # 6 tab, 0 Refill(s), Pharmacy: [facility] [id number] Active 07/26/2016 [facility] azaTHIOprine 50 mg oral tablet 50 mg=1 tab, PO, Daily, # 30 tab, 3 Refill(s), Pharmacy: [facility] [id number] Active 04/26/2016 [facility] predniSONE 5 mg oral tablet 20 mg=4 tab, PO, Daily, # 120 tab, 1 Refill(s), Pharmacy: [facility] [id number] Active 03/07/2016 [facility] azaTHIOprine 50 mg oral tablet 50 mg=1 tab, PO, Daily, # 30 tab, 0 Refill(s) Active 03/07/2016 [facility] predniSONE 20 mg oral tablet 20 mg=1 tab, PO, Daily, 0 Refill(s) Active 03/07/2016 [facility] {21 (Ethinyl Estradiol 0.035 MG / Norethindrone 1 MG Oral Tablet) / 7 (Inert Ingredients 1 MG Oral Tablet) } Pack [Necon 28 Day] 1 tab, PO, Daily, # 28 tab, 0 Refill(s) Active 03/07/2016 [facility] Allergies, Adverse Reactions, Alerts Substance Category Reaction Severity Reaction type Status Date Reported Comments Source Immunizations Immunization Date Given Site Status Last Updated Comments Source Results Order Name Results Value Reference Range Date Interpretation Comments Source Biopsy through a catheter VR Biopsy through a catheter VR STUDY: VIR imaging guided transjugular liver biopsy with pressures and free and wedged hepatic venogram. The pressures are both DATE: 05/08/2018 10:02 AM CDT INDICATION(S): Liver disease. The biopsy is needed to defines current status and the pressures are desired to see if there is a level of diseased to be more concerned about. PROCEDURE(S) PERFORMED: The right neck was sterilely prepped and draped. 1% lidocaine was infiltrated for local anesthesia. 21-gauge microstick needle was placed in the right internal jugular vein. The right internal jugular vein was shown to be patent with compression and noncompression images and images in the PACS. The needle in the vein was sent to the PACS. Over 0.018 inch wire 5-Yi sheath was placed. This was exchanged over 0.035 inch Bentson wire for a 9- Yi angled sheath and through that the biopsy device was passed into a right hepatic vein. Free and wedged hepatic venograms were obtained in this vein and then 3 passes for biopsy were made through the metal cannula with the side cutting needle. All sheaths were then removed and hemostasis accomplished by holding pressure. WOOD STAINER: [employer] MAILROOM MESSENGER(S): CONSENT: Written consent obtained after discussing the indications, procedure, potential benefits, alternatives and risks SEDATION/PAIN CONTROL: Moderate conscious sedation was administered by a dedicated nurse under my supervision. There was continuous monitoring of BP, pulse and oxygen saturation.. Sedation time 40 minutes. COMPLICATIONS: None ESTIMATED BLOOD LOSS: Minimal mL FLUOROSCOPIC TIME: Not available minutes. RADIATION DOSE: Not available mGy CONTRAST VOLUME: 90 mL Visipaque 320 FINDINGS: Free and wedged hepatic venograms are both normal. The free hepatic vein pressure is 18 mmHg and the wedged pressure was 20 mmHg. Therefore the portosystemic gradient is about 2 mmHg IMPRESSION: 1. Normal pressure gradient and normal venograms wedged and free PLAN/FOLLOW UP: Dr. Peck, IR Attending, was present for the procedure. 05/08/2018 - - Read by: Eliecer Peck MD Dictated Date/time: 05/08/18 13:20 Electronically Signed by: Eliecer Peck MD 05/11/18 16:11 FINAL REPORT [facility] URINE CHEM U Preg Negative (04/10/18 9:31 AM) Negative 04/10/2018 [facility] INR 1.05 0.85 - 1.17 03/30/2018 [facility] PT 13.7 s 12.0 - 14.7 03/30/2018 [facility] PTT 27.3 s 22.9 - 35.8 03/30/2018 [facility] RDW 14.8 % 11.5 - 14.5 03/30/2018 [facility] Platelet 113 K/CMM 133 - 450 03/30/2018 [facility] MPV 11.8 fL 7.4 - 10.4 03/30/2018 [facility] WBC 10.6 K/CMM 3.7 - 10.4 03/30/2018 [facility] RBC 4.97 M/CMM 4.20 - 5.40 03/30/2018 [facility] Hct 39.8 % 36.0 - 48.0 03/30/2018 [facility] MCV 80.1 fL 80.0 - 98.0 03/30/2018 [facility] Hgb 13.2 g/dL 12.0 - 16.0 03/30/2018 [facility] MCH 26.6 pg 27.0 - 31.0 03/30/2018 [facility] MCHC 33.2 g/dL 32.0 - 36.0 03/30/2018 [facility] Lymphocytes # 3.3 K/CMM 1.0 - 5.5 03/30/2018 [facility] Neutrophils # 6.2 K/CMM 1.5 - 8.1 03/30/2018 [facility] Eosinophils # 0.2 K/CMM 0.0 - 0.5 03/30/2018 [facility] HEMATOLOGY Basophils 0.6 % 0.0 - 1.0 03/30/2018 [facility] HEMATOLOGY Monocytes # 0.8 K/CMM 0.0 - 0.8 03/30/2018 [facility] HEMATOLOGY Basophils # 0.1 K/CMM 0.0 - 0.2 03/30/2018 [facility] HEMATOLOGY Eosinophils 1.6 % 0.0 - 4.0 03/30/2018 [facility] HEMATOLOGY Monocytes 7.4 % 2.0 - 12.0 03/30/2018 [facility] HEMATOLOGY Lymphocytes 31.6 % 20.0 - 40.0 03/30/2018 [facility] HEMATOLOGY Segs 58.8 % 45.0 - 75.0 03/30/2018 [facility] URINE AND STOOL UA Color Yulissa 03/30/2018 [facility] URINE AND STOOL UA Spec Grav 1.020 <=1.030 03/30/2018 [facility] URINE AND STOOL UA pH 5.0 5.0 - 8.0 03/30/2018 [facility] URINE AND STOOL UA Turbidity Marked *ABN* (03/30/18 7:55 AM) Clear 03/30/2018 [facility] URINE AND STOOL UA Blood Negative (03/30/18 7:55 AM) Negative 03/30/2018 [facility] URINE AND STOOL UA Bili Negative *NA* (03/30/18 7:55 AM) Negative 03/30/2018 [facility] URINE AND STOOL UA Ketones Negative mg/dL Negative mg/dL 03/30/2018 [facility] URINE AND STOOL UA Protein Negative mg/dL Negative mg/dL 03/30/2018 [facility] URINE AND STOOL UA Glucose Negative mg/dL Negative mg/dL 03/30/2018 [facility] URINE AND STOOL UA WBC 9 /HPF 0 - 5 03/30/2018 [facility] URINE AND STOOL UA Leuk Est Negative (03/30/18 7:55 AM) Negative 03/30/2018 [facility] URINE AND STOOL UA Sq Epi Moderate /LPF Few /LPF 03/30/2018 [facility] URINE AND STOOL UA Urobilinogen 4.0 mg/dL 0.1 - 1.0 03/30/2018 [facility] URINE AND STOOL UA Nitrite Negative (03/30/18 7:55 AM) Negative 03/30/2018 [facility] URINE AND STOOL UA RBC 2 /HPF 0 - 2 03/30/2018 [facility] URINE AND STOOL UA Bacteria Moderate /HPF None Seen /HPF 03/30/2018 [facility] URINE AND STOOL UA Mucus Few /LPF None Seen /LPF 03/30/2018 [facility] Liver w Liver vessels Doppler US Liver w Liver vessels Doppler US EXAM: US LIVER WITH LIVER VASCULAR DOPPLER DATE: 03/12/2018 7:54 AM CDT INDICATION: - R79.89 Other specified abnormal findings of blood chemistry, K75.4 Autoimmune hepatitis. Autoimmune hepatitis. ADDITIONAL INFORMATION: Previous liver biopsy in June 2017 reported benign findings as per the patient. COMPARISON: Ultrasound guided liver biopsy images of 06/30/2017. TECHNIQUE: Multiplanar grayscale, color Doppler and spectral Doppler ultrasound of the abdomen. FINDINGS: Liver: Craniocaudal length: 15.2 cm. Echogenicity: Mildly diffusely increased. Surface nodularity: Normal. Mass (size and location): None. Hepatic and portal vasculature: Hepatic artery: Patent with antegrade pulsatile flow. Resistive index: 0.51 Portal veins: Patent with normal hepatopetal monophasic flow. Hepatic veins: Patent with normal hepatofugal multiphasic flow. Splenic artery: Patent with antegrade pulsatile flow. Splenic vein: Patent with normal direction of flow. Bile ducts: Common bile duct diameter: 0.45 cm. Normal. Intrahepatic ducts: Normal. Gallbladder: Normal. Gallstones: None. Gallbladder sludge: None. Gallbladder wall: 0.22 cm. Pericholecystic fluid: None. Sonographic David sign: Absent. Pancreas: No abnormalities of the visualized portions of the pancreas are seen.Portions of the pancreatic tail are secured by overlying bowel gas. Spleen: Craniocaudal length: 9.3 cm. Mass or focal lesion (size and location): None. Right kidney: Size: 10.4 x 3.8 x 5.7 cm. Hydronephrosis: None. Echogenicity: Normal. Mass/Stone/Cyst (size and location): None. Abdominal aorta and IVC: Normal where visualized. Ascites: None. Pleural effusions: None. IMPRESSION: 1. Mild nonspecific increased liver echogenicity, a finding most commonly caused by mild fatty infiltration of the liver. 2. No Doppler/flow abnormalities. No evidence of portal hypertension. 03/12/2018 - - Read by: Martínez Santo MD Dictated Date/time: 03/12/18 08:52 Electronically Signed by: Martínez Santo MD 03/12/18 08:55 FINAL REPORT [facility] Pelvis w IV contrast CT Pelvis w IV contrast CT EXAM: CT PELVIS WITH CONTRAST DATE: 03/03/2018 10:30 AM CDT INDICATION: - L98.8 Other specified disorders of the skin and subcutaneous tissue ADDITIONAL INFORMATION: None. COMPARISON: None. TECHNIQUE: Volumetric CT acquisition of the pelvis after the intravenous administration contrast. Axial, coronal and sagittal reconstructions. Postcontrast phases: Venous and delayed. IV contrast: 100 cc Visipaque 320 Enteric contrast: Water. DLP: 1192 mGy-cm FINDINGS: Lines, tubes and hardware: None. Ureters: Normal where visualized. Bladder: Normal. Reproductive organs: No abnormalities of the uterus, ovaries, vagina are seen. Gastrointestinal tract: Included small bowel: Normal. Included colon: Normal. Rectum: Normal Anus: Normal. A linear abnormality is seen external to the right perirenal fascia in the right ischiorectal fossa as described below. Appendix: Normal. Peritoneum, mesentery and retroperitoneum: No free air, ascites or loculated fluid. Lymph nodes: Normal. Vasculature: Normal. Bones: No acute abnormality. Soft tissues: A linear area of soft tissue thickening/enhancement measuring 0.7 x 5.8 x 2.1 cm is seen in the left medial thigh and lateral to the inferior aspect of the perianal fascia within the right ischiorectal fossa. This finding appears to extend to the skin surface on image 45 series 2 and image 88 of series 5 with the inferior most aspect of this lesion not covered in the [id number] of this exam. No distinct communication with the anus or rectum is seen. No distinct fluid collection is seen. IMPRESSION: 1. Linear soft tissue density thickened linear enhancing density extending from the medial skin of the gluteal crease just distal to the anus on the right extending into the right ischiorectal fossa without distinct communication with the anus, rectum, or vagina. This finding likely represents a perianal fissure/sinus tract with no discrete fluid collection/abscess demonstrated. Correlation with physical exam is recommended. 2. No other abnormalities are detected. RECOMMENDATIONS: Correlation with physical examination of the anal and perianal region is recommended. 03/03/2018 - - Read by: Martínez Santo MD Dictated Date/time: 03/03/18 11:55 Electronically Signed by: Martínez Santo MD 03/03/18 12:07 FINAL REPORT [facility] Bone Density DXA [employer] MA Bone Density DXA [employer] MA BONE DENSITY ASSESSMENT: 09/01/2017 CLINICAL DATA: E66.01 Obesity, morbid, BMI 40.09-49.9, Z79.52 oysterman systemic steriod user. E66.01 Morbid (Severe) Obesity Due To Excess Calories, Z79.52 Marketing [employer] (Current) Use Of Systemic Steroids/E66.01 Morbid (Severe) Obesity Due To Excess Calories, Z79.52 Intermediate (Current) Use Of Systemic Steroids RISK FACTORS: oysterman use of corticosteroids. Black. FINDINGS: Bone density evaluation was performed 09/01/2017 on the right femur neck using a Hologic unit. The BMD average for the exam is 1.173 g/cm2. The T-score is 2.90 and the Z-score is 3.00. This matches the World Health Organization's criteria for normal bone density and places the patient within normal limits of fracture risk. An additional bone density evaluation was performed 09/01/2017 on the left femur neck using a Hologic unit. The BMD average for the exam is 1.132 g/cm2. The T- score is 2.50 and the Z-score is 2.70. This matches the World Health Organization's criteria for normal bone density and places the patient within normal limits of fracture risk. An additional bone density evaluation was performed 09/01/2017 on the right hip using a Hologic unit. The BMD average for the exam is 1.271 g/cm2. The T-score is 2.70 and the Z-score is 2.70. This matches the World Health Organization's criteria for normal bone density and places the patient within normal limits of fracture risk. An additional bone density evaluation was performed 09/01/2017 on the left hip using a Hologic unit. The BMD average for the exam is 1.267 g/cm2. The T-score is 2.70 and the Z-score is 2.70. This matches the World Health Organization's criteria for normal bone density and places the patient within normal limits of fracture risk. An additional bone density evaluation was performed 09/01/2017 on the AP L1-L4 region of spine using a Hologic unit. The BMD average for the exam is 1.128 g/cm2. The T-score is 0.70 and the Z-score is 0.80. This matches the World Health Organization's criteria for normal bone density and places the patient within normal limits of fracture risk. IMPRESSION: BONE DENSITY WITHIN NORMAL LIMITS Patient is at normal risk for fracture. This exam was interpreted at [id number] for JOSEPHINE Marie M.D. cm/penrad:09/01/2017 14:02:58 Recruiting Coordinator(s): Romi WHITE(R)(Ajay), [facility] - - Read by: Brian Santos MD Dictated Date/time: 09/01/17 14:02 Electronically Signed by: Brian Santos MD 09/01/17 14:02 FINAL REPORT [facility] URINE CHEM U Preg Negative (06/30/17 9:49 AM) Negative 06/30/2017 [facility] Guided Needle BX/Asp/Inj/NeedLoc US Guided Needle BX/Asp/Inj/NeedLoc US STUDY: Percutaneous liver biopsy nontargeted Percutaneous ultrasound-guided biopsy lymph node right DATE: 06/30/2017 10:33 AM MEDIA OPERATOR INDICATION(S): Rising liver enzymes, lymph node right neck PROCEDURE(S) PERFORMED: The patient's right upper quadrant was sterilely prepped and draped. 1% lidocaine was infiltrated for local anesthesia. The right upper quadrant was entered with a 17-gauge guiding needle and 2 passes made with a 18- gauge Bio-Pen's with throw of 33 mm. The neck was sterilely prepped and draped. 1% lidocaine was infiltrated for local anesthesia. About 5 passes were made with a 20-gauge spinal needle and submitted to cytopathology for analysis. WOOD STAINER: [employer] MAILROOM MESSENGER(S): CONSENT: Written consent obtained after discussing the indications, procedure, potential benefits, alternatives and risks SEDATION/PAIN CONTROL: Moderate conscious sedation was administered by a dedicated nurse under my supervision. There was continuous monitoring of BP, pulse and oxygen saturation.. Sedation time minutes. COMPLICATIONS: None ESTIMATED BLOOD LOSS: Minimal mL FLUOROSCOPIC TIME: minutes. RADIATION DOSE: mGy CONTRAST VOLUME: mL FINDINGS: The needle is seen in the liver for liver biopsy and postprocedure no perihepatic or intrahepatic hematoma is present. A small amount air is seen in the liver postbiopsy. For the lymph node the needle is seen in the lymph node in the right neck on all passes. The lymph node measures about 1 x 2.5 cm. No hematoma is seen around the lymph node postprocedure IMPRESSION: 1. Biopsy right neck lymph node performed. 2. Biopsy liver nontargeted performed PLAN/FOLLOW UP: I have talked with Dr. Emmanuel about the biopsy Dr. Peck, IR Attending, was present for the procedure. 06/30/2017 - - Read by: Eliecer Peck MD Dictated Date/time: 06/30/17 13:07 Electronically Signed by: Eliecer Peck MD 06/30/17 13:11 FINAL REPORT [facility] Liver biopsy guided US Liver biopsy guided US STUDY: Percutaneous liver biopsy nontargeted Percutaneous ultrasound-guided biopsy lymph node right DATE: 06/30/2017 10:33 AM MEDIA OPERATOR INDICATION(S): Rising liver enzymes, lymph node right neck PROCEDURE(S) PERFORMED: The patient's right upper quadrant was sterilely prepped and draped. 1% lidocaine was infiltrated for local anesthesia. The right upper quadrant was entered with a 17-gauge guiding needle and 2 passes made with a 18- gauge Bio-Pen's with throw of 33 mm. The neck was sterilely prepped and draped. 1% lidocaine was infiltrated for local anesthesia. About 5 passes were made with a 20-gauge spinal needle and submitted to cytopathology for analysis. WOOD STAINER: [employer] MAILROOM MESSENGER(S): CONSENT: Written consent obtained after discussing the indications, procedure, potential benefits, alternatives and risks SEDATION/PAIN CONTROL: Moderate conscious sedation was administered by a dedicated nurse under my supervision. There was continuous monitoring of BP, pulse and oxygen saturation.. Sedation time minutes. COMPLICATIONS: None ESTIMATED BLOOD LOSS: Minimal mL FLUOROSCOPIC TIME: minutes. RADIATION DOSE: mGy CONTRAST VOLUME: mL FINDINGS: The needle is seen in the liver for liver biopsy and postprocedure no perihepatic or intrahepatic hematoma is present. A small amount air is seen in the liver postbiopsy. For the lymph node the needle is seen in the lymph node in the right neck on all passes. The lymph node measures about 1 x 2.5 cm. No hematoma is seen around the lymph node postprocedure IMPRESSION: 1. Biopsy right neck lymph node performed. 2. Biopsy liver nontargeted performed PLAN/FOLLOW UP: I have talked with Dr. Emmanuel about the biopsy Dr. Peck, IR Attending, was present for the procedure. 06/30/2017 - - Read by: Eliecer Peck MD Dictated Date/time: 06/30/17 13:07 Electronically Signed by: Eliecer Peck MD 06/30/17 13:11 FINAL REPORT [facility] Pelvis w Pelvis Transvaginal US Pelvis w Pelvis Transvaginal US EXAM: US PELVIS TRANSABDOMINAL EXAM: US PELVIS TRANSVAGINAL DATE: 06/06/2017 12:47 PM CDT INDICATION: - N92.1 Excessive and frequent menstruation with irregular cycle ADDITIONAL INFORMATION: LMP: 05/29/2017; COMPARISON: None. TECHNIQUE: Multiplanar grayscale and color Doppler ultrasound images of the pelvis were obtained transabdominally through a distended urinary bladder followed by transvaginal examination postvoid. FINDINGS: Uterus: Orientation: Anteverted Size: 5.9 x 2.7 x 3.3 cm Masses: None. Cervix: Within the superior aspect of the cervix, multiple small anechoic cystic spaces are seen with some appearing to extend into the canal and into the lower uterine segment endometrium. No abnormal internal vascularity is seen. Endometrium: 3.5 mm. See above. Right ovary: Size: 2.4 x 1.7 x 1.8 cm Cysts: None. Masses: None. Vascularity: Normal. Left ovary: Size: 2.8 x 1.3 x 1.9 cm Cysts: None. Masses: None. Vascularity: Normal. Adnexa: No adnexal masses or fluid collections are seen. Free fluid: None. Other findings: Arising off of the anterior bladder wall, there is a diverticulum measuring 1.5 x 0.5 x 0.6 cm.. IMPRESSION: 1. The endometrium is normal in thickness. 2. Within the superior cervix/endocervical canal and lower uterine segment endometrium/endometrial canal multiple contiguous small anechoic cystic spaces with no intervening abnormal vascularity are demonstrated measuring approximately 2.1 cm in length and 5 mm in maximal diameter and total. Although possibly the sequela of unusual multiple nabothian cysts or tunnel cluster, adenoma malignum is not definitively excluded. The former is favored given lack of significant vascularity. Colposcopy with biopsy, if necessary, is recommended for further evaluation. 06/06/2017 - - Read by: Martínez Santo MD Dictated Date/time: 06/06/17 14:41 Electronically Signed by: Martínez Santo MD 06/06/17 15:06 FINAL REPORT [facility] Thyroid US Thyroid US EXAM: US THYROID DATE: 06/06/2017 12:45 PM CDT INDICATION: - R22.1 Localized swelling, mass and lump, neck, K75.4 Autoimmune hepatitis ADDITIONAL INFORMATION: None. COMPARISON: MRI of the cervical spine of 05/09/2017. TECHNIQUE: Multiplanar grayscale and color Doppler ultrasound of the neck were obtained in the area of the thyroid. FINDINGS: Thyroid parenchyma: Normal. Size: Right thyroid: 3.5 x 1.2 x 1.5 cm Left thyroid: 2.9 x 1.3 x 1.3 cm Isthmus thickness: 0.2 cm Thyroid nodules: None. Cervical lymph nodes: The superior aspect of the right side of neck, there is a hypoechoic solid lesion with internal vascularity located approximately 8 mm deep to the skin surface and superficial to the carotid/jugular vessels measuring 2.3 x 1.1 x 2.4 cm. No fatty hilum is seen. IMPRESSION: 1. No abnormalities of the thyroid gland are seen. 2. Hypoechoic 2.3 x 1.1 x 2.4 cm lesion in the right superior neck, likely an enlarged nonspecific pathologic lymph node. If further evaluation is warranted clinically, fine-needle aspiration of this node and/or CT scan of the neck with contrast be recommended for further evaluation. REFERENCE: Sarai FN, Spenser WD, Asher EG, et al. ACR Thyroid Imaging, Reporting and Data System (TI-RADS): White Paper of the ACR TI-RADS Committee. J Am Javon Radiol. 2017; 14(5): 587-595. 06/06/2017 - - Read by: Martínez Santo MD Dictated Date/time: 06/06/17 14:05 Electronically Signed by: Martínez Santo MD 06/06/17 14:09 FINAL REPORT [facility] Spine cervical w/wo contrast MRI Spine cervical w/wo contrast MRI Study: Spine cervical w/wo contrast MRI Clinical Indication: R20.9 Unspecified disturbances of skin sensation Comparison: Plain films of the cervical spine from 08/05/2016 TECHNIQUE: Multiplanar, multisequence magnetic resonance imaging of the cervical spine was performed before and after the administration of intravenous gadolinium contrast. FINDINGS: There is normal alignment of the cervical spine. No focal marrow signal abnormality is present. The prevertebral soft tissues, atlanto-dental interspace, and craniocervical junction are within normal limits. The visualized brainstem region is unremarkable. The cervical spinal cord is normal in size and signal. The discs are normal in signal intensity and height throughout the cervical spine. No abnormal enhancement is seen. DISC SPACES: C2-C3: No significant disc bulge or protrusion is seen. The facets are intact. There is no spinal canal stenosis or neural foraminal narrowing. C3-C4: No significant disc bulge or protrusion is seen. The facets are intact. There is no spinal canal stenosis or neural foraminal narrowing. C4-C5: No significant disc bulge or protrusion is seen. The facets are intact. There is no spinal canal stenosis or neural foraminal narrowing. C5-C6: No significant disc bulge or protrusion is seen. The facets are intact. There is no spinal canal stenosis or neural foraminal narrowing. C6-C7: No significant disc bulge or protrusion is seen. The facets are intact. There is no spinal canal stenosis or neural foraminal narrowing. C7-T1: No significant disc bulge or protrusion is seen. The facets are intact. There is no spinal canal stenosis or neural foraminal narrowing. IMPRESSION: 1. Normal MRI of the cervical spine with and without contrast. SL: [id number] 10/09/2016 - - Read by: Syd Tam MD Dictated Date/time: 10/09/16 11:12 Electronically Signed by: Syd Tam MD 10/09/16 11:13 FINAL REPORT [facility] Brain w/wo contrast MRI Brain w/wo contrast MRI Brain w/wo contrast MRI CLINICAL INDICATION: R20.9 Unspecified disturbances of skin sensation; Pt c/o left arm weakness and left hand numbness x couple months on and off. 20cc dotarem lot#[id number] COMPARISON: CT head 07/26/2016 TECHNIQUE: Multiplanar imaging of the brain was performed without and with administration of IV contrast. FINDINGS: BRAIN PARENCHYMA: The brain parenchyma demonstrates normal signal with appropriate goss-white matter differentiation. No areas of restricted diffusion are visualized to suggest an acute infarct. No extra-axial fluid collection or intraparenchymal hemorrhage. Small arachnoid cyst in the left middle cranial fossa is unchanged in size and appearance from previous CT study of 07/26/2016. There is no local mass effect. No evidence for an enhancing mass or other areas of abnormal enhancement are visualized. No CP angle mass is visualized. IACs demonstrate normal morphology on the pre and postcontrast scans. The brainstem and craniocervical junction are unremarkable. VENTRICLES: No ventriculomegaly. The basilar cisterns are normal. .Cerebral volume is within normal limits. VISUALIZED VESSELS: The expected intracranial flow voids are present. SELLA, SKULL BASE AND ORBITS: The visualized orbits and optic chiasm are unremarkable. Pituitary gland demonstrates normal morphology. PARANASAL SINUSES AND MASTOIDS: The visualized paranasal sinuses are clear. The mastoid air cells are clear. IMPRESSION: No significant abnormality is noted on the pre and postcontrast MRI of the brain. SL: [id number] 10/09/2016 - - Read by: Dylan Rod MD Dictated Date/time: 10/09/16 10:54 Electronically Signed by: Dylan Rod MD 10/09/16 11:06 FINAL REPORT [facility] Spine cervical 2 or 3 view DX Spine cervical 2 or 3 view DX EXAM: XR CERVICAL SPINE 3 VIEWS DATE: 08/05/2016 at 0955 hours INDICATION: M54.2 Cervicalgia TECHNIQUE: AP, open-mouth odontoid and lateral radiographs of the cervical spine show from the skull base through C7. FINDINGS: Vertebral body heights, disk heights and alignment are overall preserved. No prevertebral or paraspinous soft tissue abnormality is identified. IMPRESSION: No acute abnormality. 08/05/2016 - - This report was dictated by a Ethics Officer/Fellow. I have personally reviewed the images as well as the Resident's interpretation and agree with the findings. Read by: Pascual Mendez MD Resident: Pascual Mendez MD Dictated Date/time: 08/05/16 10:36 Electronically Signed by: Darren Braun MD 08/05/16 17:34 FINAL REPORT [facility] CARDIAC ENZYMES Total CK 82 unit/L 12 - 191 07/26/2016 [facility] CARDIAC ENZYMES CK MB null 0.5 - 3.6 07/26/2016 [facility] CARDIAC ENZYMES Troponin-I null 0.00 - 0.40 07/26/2016 [facility] CARDIAC ENZYMES CK MB Index null 0.0 - 2.5 07/26/2016 [facility] CHEM PANEL eGFR 102 mL/min/1.73m2 07/26/2016 Result Comment: The eGFR is calculated using the [...] from the National Kidney Disease Education Program (NKDEP) which additionally recommends that when the eGFR is used in patients with extremes of body mass index for purposes of drug dosing, the eGFR should be multiplied by the estimated BMI. [facility] CHEM PANEL Globulin 4.7 g/dL 2.7 - 4.2 07/26/2016 [facility] CHEM PANEL A/G Ratio 0.7 0.7 - 1.6 07/26/2016 [facility] CHEM PANEL AGAP 13.9 meq/L 10.0 - 20.0 07/26/2016 [facility] CHEM PANEL B/C Ratio 8 6 - 25 07/26/2016 [facility] CHEM PANEL Bili Total 0.3 mg/dL 0.2 - 1.3 07/26/2016 [facility] CHEM PANEL AST 30 unit/L 0 - 37 07/26/2016 [facility] CHEM PANEL Alk Phos 71 unit/L 39 - 136 07/26/2016 [facility] CHEM PANEL ALT 31 unit/L 0 - 65 07/26/2016 [facility] CHEM PANEL Glucose Lvl 91 mg/dL 70 - 99 07/26/2016 [facility] CHEM PANEL Albumin Lvl 3.2 g/dL 3.5 - 5.0 07/26/2016 [facility] CHEM PANEL Total Protein 7.9 g/dL 6.4 - 8.4 07/26/2016 [facility] CHEM PANEL Calcium Lvl 8.6 mg/dL 8.5 - 10.5 07/26/2016 [facility] CHEM PANEL Chloride Lvl 106 meq/L 95 - 109 07/26/2016 [facility] CHEM PANEL Potassium Lvl 3.9 meq/L 3.5 - 5.1 07/26/2016 [facility] CHEM PANEL CO2 23 meq/L 24 - 32 07/26/2016 [facility] CHEM PANEL BUN 6 mg/dL 7 - 22 07/26/2016 [facility] CHEM PANEL Sodium Lvl 139 meq/L 135 - 145 07/26/2016 [facility] CHEM PANEL Creatinine Lvl 0.78 mg/dL 0.50 - 1.40 07/26/2016 [facility] HEMATOLOGY PTT 27.2 s 22.9 - 35.8 07/26/2016 [facility] HEMATOLOGY PT 12.9 s 12.0 - 14.7 07/26/2016 [facility] HEMATOLOGY INR 0.95 0.85 - 1.17 07/26/2016 [facility] HEMATOLOGY MCHC 32.3 g/dL 32.0 - 36.0 07/26/2016 [facility] HEMATOLOGY RDW 13.2 % 11.5 - 14.5 07/26/2016 [facility] HEMATOLOGY Platelet 175 K/CMM 133 - 450 07/26/2016 [facility] HEMATOLOGY MPV 11.9 fL 7.4 - 10.4 07/26/2016 [facility] HEMATOLOGY WBC 10.2 K/CMM 3.7 - 10.4 07/26/2016 [facility] HEMATOLOGY RBC 5.06 M/CMM 4.20 - 5.40 07/26/2016 [facility] HEMATOLOGY MCV 83.9 fL 80.0 - 98.0 07/26/2016 [facility] HEMATOLOGY Hct 42.4 % 36.0 - 48.0 07/26/2016 [facility] HEMATOLOGY MCH 27.1 pg 27.0 - 31.0 07/26/2016 [facility] HEMATOLOGY Hgb 13.7 g/dL 12.0 - 16.0 07/26/2016 [facility] HEMATOLOGY Lymphocytes 29.8 % 20.0 - 40.0 07/26/2016 [facility] HEMATOLOGY Segs 62.2 % 45.0 - 75.0 07/26/2016 [facility] HEMATOLOGY Basophils 0.7 % 0.0 - 1.0 07/26/2016 [facility] HEMATOLOGY Lymphocytes # 3.0 K/CMM 1.0 - 5.5 07/26/2016 [facility] HEMATOLOGY Segs-Bands # 6.3 K/CMM 1.5 - 8.1 07/26/2016 [facility] HEMATOLOGY Eosinophils 0.6 % 0.0 - 4.0 07/26/2016 [facility] HEMATOLOGY Monocytes 6.7 % 2.0 - 12.0 07/26/2016 [facility] HEMATOLOGY Basophils # 0.1 K/CMM 0.0 - 0.2 07/26/2016 [facility] HEMATOLOGY Eosinophils # 0.1 K/CMM 0.0 - 0.5 07/26/2016 [facility] HEMATOLOGY Monocytes # 0.7 K/CMM 0.0 - 0.8 07/26/2016 [facility] URINE AND STOOL UA Urobilinogen <=1.0 mg/dL 0.1 - 1.0 07/26/2016 [facility] URINE AND STOOL UA Sq Epi Few /LPF Few /LPF 07/26/2016 [facility] URINE AND STOOL UA WBC 6 /HPF 0 - 5 07/26/2016 [facility] URINE AND STOOL UA Blood Moderate *ABN* (07/26/16 5:07 PM) Negative 07/26/2016 [facility] URINE AND STOOL UA Nitrite Negative (07/26/16 5:07 PM) Negative 07/26/2016 [facility] URINE AND STOOL UA Leuk Est Trace *ABN* (07/26/16 5:07 PM) Negative 07/26/2016 [facility] URINE AND STOOL UA Glucose Negative mg/dL Negative mg/dL 07/26/2016 [facility] URINE AND STOOL UA Ketones Negative mg/dL Negative mg/dL 07/26/2016 [facility] URINE AND STOOL UA Bili Negative *NA* (07/26/16 5:07 PM) Negative 07/26/2016 [facility] URINE AND STOOL UA Spec Grav 1.014 <=1.030 07/26/2016 [facility] URINE AND STOOL UA pH 5.0 5.0 - 8.0 07/26/2016 [facility] URINE AND STOOL UA Protein Negative mg/dL Negative mg/dL 07/26/2016 [facility] URINE AND STOOL UA RBC 1 /HPF 0 - 2 07/26/2016 [facility] URINE AND STOOL UA Color Yellow *NA* (07/26/16 5:07 PM) Yellow 07/26/2016 [facility] URINE AND STOOL UA Turbidity Clear (07/26/16 5:07 PM) Clear 07/26/2016 [facility] Brain wo contrast CT Brain wo contrast CT CT BRAIN WITHOUT CONTRAST INDICATION: Left arm numbness and tingling, Weakness dlp:861.26 COMPARISON: None DISCUSSION: A small arachnoid cyst of the left middle cranial fossa is noted. There is no evidence of acute vascular insults, space occupying lesions, hemorrhage, hydrocephalus, or midline shift. The calvarium is intact. IMPRESSION: No acute intracranial abnormalities are visualized. 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 abdominal pain and chest pain x 2 months. COMPARISON: None FINDINGS: Views: 1 LUNGS: There is normal lung volume. There are no suspicious interstitial/airspace opacities. There are no pleural effusions. There is no pneumothorax. The pulmonary vasculature is normal. MEDIASTINUM: The cardiac silhouette is normal. The trachea is midline. BONES: There are no clinically significant osseous abnormalities noted. IMPRESSION: No radiographic evidence of acute pulmonary disease. SL: [id number] 07/26/2016 - - Read by: Ronald Jones MD Dictated Date/time: 07/26/16 16:37 Electronically Signed by: Ronald Jones MD 07/26/16 16:38 FINAL REPORT [facility] Liver US Liver US EXAM: US RIGHT UPPER QUADRANT DATE: 12/20/2015 11:24 AM CDT INDICATION: R79.89 Other specified abnormal findings of blood chemistry ADDITIONAL INFORMATION: None. COMPARISON: None. TECHNIQUE: Multiplanar grayscale and color Doppler ultrasound images of the right upper quadrant of the abdomen. FINDINGS: Liver: Craniocaudal length: 13.1 cm. Normal. Echogenicity: Mildly increased with coarsening of the echotexture. Surface nodularity: None Mass (size and location): None. Portal vein: 7 mm with hepatopetal flow. Bile ducts: Common bile duct diameter: 4.8 mm. Normal. Intrahepatic ducts: Normal. Gallbladder: Normal. Gallstones: None. Gallbladder sludge: None. Gallbladder wall: 2.5 mm. Normal. Pericholecystic fluid: None. Sonographic David sign: Absent. Pancreas: No abnormalities of the visualized portions of the pancreas are seen. Portions of the pancreatic head and tail are obscured by overlying bowel gas. Right kidney: Size: 9.4 x 3.7 x 4.7 cm. Normal. Hydronephrosis: None Echogenicity: Normal. Mass/Stone/Cyst (size and location): None. Abdominal aorta and IVC: Visualized portions are normal. Ascites: None Pleural effusion: None. IMPRESSION: 1. Mild increased liver echogenicity and coarsening of the liver echotexture, nonspecific findings likely from underlying fatty infiltration (steatosis). Other underlying hepatocellular disease is not excluded. 2. No other abdominal abnormalities are seen sonographically. 12/20/2015 - - Read by: Martínez Santo MD Dictated Date/time: 12/20/15 12:43 Electronically Signed by: Martínez Santo MD 12/20/15 12:45 FINAL REPORT [facility] Vital Signs Vital Sign Value Date Comments Source Systolic (mm Hg) 128 04/10/2018 [facility] Diastolic (mm Hg) 76 04/10/2018 [facility] Systolic (mm Hg) 125 04/10/2018 [facility] Diastolic (mm Hg) 83 04/10/2018 [facility] Respitory Rate 23 04/10/2018 [facility] Systolic (mm Hg) 121 04/10/2018 [facility] Diastolic (mm Hg) 82 04/10/2018 [facility] Respitory Rate 17 04/10/2018 [facility] Respitory Rate 12 04/10/2018 [facility] Heart Rate 113 04/10/2018 [facility] Temperature Oral (F) 98.2 F 03/30/2018 [facility] Heart Rate 84 03/30/2018 [facility] Weight 111.364 03/30/2018 [facility] BMI Calculated 43.49 03/30/2018 [facility] Height 160.02 cm 03/30/2018 [facility] Height 157.48 cm 01/29/2018 [facility] BMI Calculated 45.82 01/29/2018 [facility] Weight 113.636 01/29/2018 [facility] Systolic (mm Hg) 129 01/29/2018 [facility] Diastolic (mm Hg) 83 01/29/2018 [facility] Heart Rate 90 01/29/2018 [facility] Systolic (mm Hg) 116 06/30/2017 [facility] Diastolic (mm Hg) 73 06/30/2017 [facility] Respitory Rate 17 06/30/2017 [facility] Systolic (mm Hg) 109 06/30/2017 [facility] Diastolic (mm Hg) 70 06/30/2017 [facility] Respitory Rate 20 06/30/2017 [facility] Systolic (mm Hg) 109 06/30/2017 [facility] Diastolic (mm Hg) 69 06/30/2017 [facility] Respitory Rate 20 06/30/2017 [facility] Height 160.02 cm 06/30/2017 [facility] Weight 100 06/30/2017 [facility] BMI Calculated 39.05 06/30/2017 [facility] BMI Calculated 39.05 05/22/2017 [facility] Weight 100 05/22/2017 [facility] Systolic (mm Hg) 112 05/22/2017 [facility] Diastolic (mm Hg) 77 05/22/2017 [facility] Height 160.02 cm 05/22/2017 [facility] Heart Rate 82 05/22/2017 [facility] Respitory Rate 18 05/22/2017 [facility] Heart Rate 101 11/21/2016 [facility] Respitory Rate 16 11/21/2016 [facility] Systolic (mm Hg) 117 11/21/2016 [facility] Diastolic (mm Hg) 80 11/21/2016 [facility] Height 160.02 cm 11/21/2016 [facility] Weight 104.091 11/21/2016 [facility] BMI Calculated 40.65 11/21/2016 [facility] Respitory Rate 17 07/26/2016 [facility] Heart Rate 87 07/26/2016 [facility] Systolic (mm Hg) 105 07/26/2016 [facility] Diastolic (mm Hg) 54 07/26/2016 [facility] BMI Calculated 39.05 07/26/2016 [facility] Weight 100 07/26/2016 [facility] Height 160.02 cm 07/26/2016 [facility] Systolic (mm Hg) 136 07/26/2016 [facility] Diastolic (mm Hg) 87 07/26/2016 [facility] Temperature Oral (F) 98 F 07/26/2016 [facility] Heart Rate 95 07/26/2016 [facility] Respitory Rate 17 07/26/2016 [facility] Weight 101.136 06/06/2016 [facility] BMI Calculated 39.5 06/06/2016 [facility] Height 160.02 cm 06/06/2016 [facility] Respitory Rate 16 06/06/2016 [facility] Systolic (mm Hg) 120 06/06/2016 [facility] Diastolic (mm Hg) 79 06/06/2016 [facility] Heart Rate 90 06/06/2016 [facility] Weight 91.818 03/07/2016 [facility] BMI Calculated 35.86 03/07/2016 [facility] Height 160.02 cm 03/07/2016 [facility] Systolic (mm Hg) 110 03/07/2016 [facility] Diastolic (mm Hg) 78 03/07/2016 [facility] Heart Rate 94 03/07/2016 [facility] Encounters Location Location Details Encounter Type Encounter Number Reason For Visit Attending Provider ADM Date DC Date Status Source [facility]patient [facility] - [place] Outpt Diag Services [id number] Mei Sattar 12/20/2015 12/21/2015 [facility] Outpatient [id number] Eric Gaspar 03/07/2016 03/08/2016 [facility] Outpatient [id number] Eric Emmanuel Gaspar 06/06/2016 06/07/2016 [facility] Emergency [id number] Bisi Seth 07/26/2016 07/27/2016 [facility] Outpatient Imaging - [place] Outpt Diag Services [id number] Mei Sattar 08/05/2016 08/06/2016 [facility] Outpatient [id number] Dayanara Johnson 10/09/2016 10/10/2016 [facility] Outpatient [id number] Eric Emmanuel Gaspar 11/21/2016 11/22/2016 [facility] Outpatient [id number] Eric Lien Gaspar 05/22/2017 05/23/2017 [facility] Outpatient Imaging - [place] Outpt Diag Services [id number] Mei Sattar 06/06/2017 06/07/2017 [facility] Outpatient [id number] Eric Emmanuel Gaspar 06/30/2017 06/30/2017 [facility] [place] [facility] [id number] Mei Sattar 09/01/2017 09/02/2017 [facility] [id number] Eric Smithin 01/29/2018 01/30/2018 [facility] - [place] [facility] [id number] [place] Ekhaese 03/03/2018 03/04/2018 [facility] Out[facility] Imaging - [place] [facility] [id number] Eric Emmanuel Gaspar 03/12/2018 03/13/2018 [facility] [id number] Susana Urias 04/10/2018 04/10/2018 [facility] Procedures Procedure Code Date Perfomer Comments Source Fine needle aspiration; with imaging guidance [id number] 06/30/2017 [facility] Biopsy of liver, needle; percutaneous [id number] 06/30/2017 [facility] Tonsillectomy and adenoidectomy [id number] 08/18/1991 [facility] Tonsillectomy and adenoidectomy [id number] 08/18/[address] of brain [id number] [facility] [place] EKG [id number] [facility] [place] EMG - Electromyography [id number] [facility] [place] MRI of head and cervical spine [id number] [facility] [place] CT of brain [id number] [facility] EKG [id number] [facility] EMG - Electromyography [id number] [facility] MRI of head and cervical spine [id number] [facility] CT of brain [id number] [facility] [place] EKG [id number] [facility] [place] [facility]G - Electromyography [id number] [facility] [place] MRI of head and cervical spine [id number] [facility] [place] Biopsy [id number] [facility] [place] Biopsy [id number] [facility] of brain [id number] [facility] E[facility] [id number] [place] [facility]G - Electromyography [id number] [place] [facility] of head and cervical spine [id number] [facility]
[2018-11-21] MEDS ORDERED: ACETAMINOPHEN 1000 MG/100 ML IV PRN (23:15)
[2018-11-21] MEDS ORDERED: SODIUM CHLORIDE 0.9% 1000ML 1,000 ML IV ONE (23:15)
[2018-11-21] MEDS: VANCOMYCIN 1GM/NS 250 ML 250 ML IV SCH (23:27)
[2018-11-21 23:48] LABS: BLAST CELLS % MANUAL 1; EOSINOPHILS % (MANUAL) 1 % (0-7); LYMPHOCYTES % (MANUAL) 17 % (19-48); MONOCYTES % (MANUAL) 5 % (3.4-9.0); NEUTROPHILS % (MANUAL) 75 % (40-74); PROMYELOCYTES % (MANUAL) 1 % (0-0)
[2018-11-22] VITALS (11 sets, daily range): BP systolic 102–131; BP diastolic 65–95
[2018-11-22] MEDS: SODIUM CHLORIDE 0.9% 1000ML 1,000 ML IV SCH ×3 (01:11→18:07)
[2018-11-22] MEDS: MORPHINE SULFATE INJ 4 MG/ML INJ 1ML IV PRN ×9 (02:38→23:39)
[2018-11-22] MEDS: PIPER-TAZ 3.375 GM 50 ML IV SCH ×3 (05:33→22:00)
--- NOTE | 2018-11-22 07:00 | NUR ---
BEDSIDE REPORT FROM NIGHT RN. PT DENIES NEEDS AT THIS TIME.
[2018-11-22 08:58] LABS: BASOPHILS % 0.3 % (0.0-1.0); EOSINOPHILS # (AUTO) 0.1 (0.0-0.4); EOSINOPHILS % 0.9 % (0.0-6.0); HEMATOCRIT 42.2 % (34.2-44.1); HEMOGLOBIN 13.4 g/dL (12.0-16.0); LYMPHOCYTES # (AUTO) 4.1 (1.0-3.2); LYMPHOCYTES % 30.4 % (18.0-39.1); MEAN CORPUSCULAR HEMOGLOBIN 25.7 pg (28-32); MEAN CORPUSCULAR HGB CONC 31.8 g/dL (31-35); MONOCYTES # (AUTO) 0.7 (0.2-0.8); MONOCYTES % 4.8 % (4.4-11.3); NEUTROPHILS # (AUTO) 8.6 (2.1-6.9); NEUTROPHILS % 63.3 % (38.7-80.0); PLATELET COUNT 153 x10e3/uL (140-360); RED BLOOD COUNT 5.21 x10e6/uL (3.6-5.1); RED CELL DISTRIBUTION WIDTH 13.4 % (11.7-14.4)
[2018-11-22 09:03] LABS: ALANINE AMINOTRANSFERASE 20 IU/L (0-55); ALBUMIN 2.9 g/dL (3.5-5.0); ALBUMIN/GLOBULIN RATIO 0.7 (0.8-2.0); ALKALINE PHOSPHATASE 67 IU/L (40-150); ANION GAP 10.9 mmol/L (8-16); BLOOD UREA NITROGEN < 5 mg/dL (7-26); CALCIUM 8.9 mg/dL (8.4-10.2); CARBON DIOXIDE 23 mmol/L (22-29); CHLORIDE 107 mmol/L (98-107); CREATININE, SERUM 0.78 mg/dL (0.57-1.11); EST GLOMERULAR FILTRATION RATE > 60 ML/MIN (60-); GLUCOSE 95 mg/dL (74-118); POTASSIUM 3.9 mmol/L (3.5-5.1); SODIUM 137 mmol/L (136-145)
[2018-11-22 09:13] LABS: BUN/CREATININE RATIO 6 (6-25)
[2018-11-22] MEDS: VANCOMYCIN 1GM/NS 250 ML 250 ML IV SCH ×2 (11:14→22:46)
--- NOTE | 2018-11-22 16:10 | History and Physical ---
PRIMARY CARE PHYSICIAN: Dr. Tony David. CONSULTANTS: Dr. Klaus Martinez. Dr. Mandi Conrad. CHIEF COMPLAINT: Left side facial swelling, lymphadenopathy, parotid gland infection, fever, tachycardia. HISTORY OF PRESENT ILLNESS: This is a very pleasant 32-year-old female, who is on immunosuppressive medication for autoimmune hepatitis. The patient came in with a one week duration of failed outpatient treatment with oral antibiotics for the left parotid gland infection with swelling. The patient was on antibiotic outpatient, but did not improve. She came in with a heart rate of 100 or greater, along with temperature of 100 with low blood pressure. She was not in shock, but she has sepsis on admission. She did receive bolus IV fluids. The patient is otherwise stable now. WBC was elevated on admission of 17,400. PAST MEDICAL HISTORY: Autoimmune hepatitis on immunosuppressive medication. PAST SURGICAL HISTORY: Tonsillectomy and liver biopsy. SOCIAL HISTORY: The patient does not smoke or use alcohol. No recreational drugs use. ALLERGIES: NO KNOWN ALLERGIES. HOME MEDICATION: 1. The patient is on Omnicef, outpatient oral antibiotic. 2. Clindamycin. 3. Provigil. 4. Nortrel. 5. Tacrolimus. REVIEW OF SYSTEMS: 1. Left facial swelling and pain. 2. Low-grade fever. PHYSICAL EXAMINATION: VITAL SIGNS: Temperature is 100, blood pressure 130/99, pulse rate 124, respirations 22. GENERAL: The patient is in pain, but not in any distress. HEENT: Normocephalic. The left side facial swelling with parotid gland swelling and extending lymphadenopathy along the left side of the neck and below the ear area. PULMONARY: Clear. CARDIOVASCULAR: Tachycardia. ABDOMEN: Soft unremarkable. EXTREMITIES: No cyanosis or edema. NEUROLOGIC: No gross focal deficit. LABORATORY DATA: WBC 17,400, hemoglobin 13.8, hematocrit 42.8, platelet is 171. Chemistry, sodium 135, potassium 4.4, chloride 101, bicarb 25, BUN is 6, creatinine 0.8, glucose is 118. [place] screen is negative. Group A strep screen is negative. IMAGING DATA: Soft tissue neck tests done showed moderately enlarged and heterogeneous enhancing left parotid gland with multifocal peripheral rim enhancing hypodensity raises concern for parotiditis associated with intraparotid abscess. Mild overlying periparotid cellulitis. IMPRESSION: 1. Sepsis on admission without shock associated with tachycardia, fever, leukocytosis and infection of the parotid gland with possible abscess. 2. Failed outpatient treatment with oral antibiotic, Omnicef and clindamycin for the infection. 3. Left facial cellulitis as above. 4. Immunosuppressed stages for treatment on immune hepatitis. PLAN: Continue home medication. Consultation with Dr. Klaus Martinez. Consultation with Dr. Mandi Conrad. Zosyn and vancomycin IV antibiotics. Pain control. Repeated lab work. We will monitor the patient closely. She did receive bolus IV fluids. Currently, blood pressure is stable and the patient is able to eat. We will give the patient's soft GI diet. MD GAYATRI Mcfarland/LIZETTE /[id number]
[2018-11-22] MEDS: MYCOPHENOLATE MOFETIL 250 MG CAP PO SCH (16:11)
--- NOTE | 2018-11-22 19:00 | NUR ---
BEDSIDE REPORT GIVEN TO PRECISION [employer]CH[employer]ICAL INSTRUMENT MAKER RN
[2018-11-22] MEDS: TACROLIMUS 1 MG CAP PO SCH (20:07)
--- NOTE | 2018-11-22 22:56 | Consultation ---
DATE OF CONSULTATION: REASON FOR CONSULTATION: Infection in the neck. 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 The patient denies any fever, chills, but she does have pain. The patient denies use of any antihistamine or any new medication, came to the emergency room where she was admitted. CAT scan done showed mildly enlarged enhancing left parotid gland, multifocal peripheral enhancing hypodensity, parotiditis with intraparotid abscess. PAST MEDICAL HISTORY: As above. MEDICATIONS: She is currently on Prograf and CellCept. Prograf is 1 mg q.12, CellCept 1250 q.12. She is on Zofran. ALLERGIES: NKA. SOCIAL HISTORY: There is no smoking, drug abuse, or alcohol abuse. 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 She has no pets. She works at [employer]. FAMILY HISTORY: Otherwise, noncontributory. REVIEW OF SYSTEMS: HEENT: Negative. PULMONARY: Negative. CARDIAC: Negative. : Negative. SKIN: There is no rash. JOINTS: Negative. PHYSICAL EXAMINATION: GENERAL: She is currently alert, oriented, does not seem to be in acute distress. VITAL SIGNS: Stable. Afebrile. HEENT: She is not icteric. Normocephalic. NECK: Supple. No JVD. No lymphadenopathy. No thyromegaly. She has left side parotid gland swollen. IMPRESSION: Parotiditis. The patient has immunocompromise what could be bacteria such as Staph or oral edyta such as anaerobic gram-negative, there is a possibility for unusual pathogen. I agree with vancomycin and Zosyn. We will see how she is going to do. It may benefit to aspirate and send for culture and sensitivity. We will discuss with ENT, especially if she does not improve. We will follow the vancomycin trough. Her white count seems to be dropping on the current dose of antibiotic, which is reassuring. We will follow with you. Apply local heat pad and we will follow. MD CHAYITO Yañez/LIZETTE /[id number]
--- NOTE | 2018-11-22 23:46 | Consultation ---
DATE OF CONSULTATION: 11/22/2018 HISTORY OF PRESENT ILLNESS: I was kindly asked to see this 32-year-old woman for evaluation of left parotitis. The patient has a 3-week history of progressive left-sided neck and preauricular discomfort and swelling which have remained unresponsive to outpatient medical management. PAST MEDICAL HISTORY: Pertinent for immunosuppressive therapy secondary to autoimmune hepatitis. REVIEW OF SYSTEMS: Her otolaryngology review of systems is noncontributory. PHYSICAL EXAMINATION: The tympanic membranes and external auditory canals were normal. Intranasal examination shows no significant abnormality, shows a minimal nasal septal deviation towards the right. Oral cavity examination is normal. Pharyngeal examination shows symmetrical elevation of soft palate. There is no significant postnasal drainage. She has no palpable cervical adenopathy. There is diffuse swelling of the left parotid gland extending into the tail of the parotid with overlying woody edema. There are no overlying skin changes. There is no saliva expressed in Stensen's duct. ASSESSMENT: 1. Left parotiditis. 2. Immunosuppression. PLAN: 1. Continue IV antibiotics. 2. Discussed with Dr. Conrad, possible aspiration of the gland if she fails to respond to therapy. 3. Possible Interventional Radiology aspiration versus aspiration and drain placement based on clinical course. Thank you very much. MD NARCISA Hardin/ANTIONETTEL /[id number]
[2018-11-23] VITALS (7 sets, daily range): BP systolic 108–138; BP diastolic 70–88
[2018-11-23] MEDS: MORPHINE SULFATE INJ 4 MG/ML INJ 1ML IV PRN ×3 (04:10→21:33)
[2018-11-23] MEDS: PIPER-TAZ 3.375 GM 50 ML IV SCH ×3 (05:25→22:00)
--- NOTE | 2018-11-23 08:00 | NUR ---
The pt. is resting quietly in bed with parent at the bedside. The pt. denies pain or discomfort at this time.
[2018-11-23] MEDS: NORTREL PO SCH (09:00)
--- NOTE | 2018-11-23 09:20 | NUR ---
In for morning med pass and the pt. reports pain 6/10 and was medicated.
[2018-11-23] MEDS: MYCOPHENOLATE MOFETIL 250 MG CAP PO SCH ×2 (09:30→17:22)
[2018-11-23] MEDS: TACROLIMUS 1 MG CAP PO SCH ×2 (09:30→21:25)
[2018-11-23] MEDS: SODIUM CHLORIDE 0.9% 1000ML 1,000 ML IV SCH ×2 (09:30→21:06)
[2018-11-23] MEDS: VANCOMYCIN 1GM/NS 250 ML 250 ML IV SCH ×2 (09:31→22:45)
--- NOTE | 2018-11-23 10:06 | NUR ---
The pt. reports that she has her nortrel at bedside and has taken it today.
--- NOTE | 2018-11-23 15:24 | NUR ---
Nutrition Screen Note RD Recommendation for Physician: - Continue Regular diet as tolerated Plan of Care: RD following, monitoring for tolerance and adequacy Nutrition reason for involvement: Nutrition Risk Trigger- MST Primary Diagnose(s): parotid gland infection, sepsis, lymphadenopathy, L facial swelling PMH: autoimmune hepatitis Ht: 62 in Wt: 229 lb BMI: 42 kg/m2 IBW: [address] Assessment: (11/23) 32 YOF admitted for parotid gland infection, seen today per MST score. Pt reports decreased po intake 1 week FIN[employer] due to difficulty chewing because of parotid gland infection. She states she was able to eat and drink, but couldn't chew. Pt denies any GI distress. Pt reports UBW of 224#, no wt loss noted. Pt tolerating current diet, declined any modifications to improve ease of chewing- noted eating well per FS. Chart reviewed. Labs and meds reviewed. Will monitor and continue to follow Current Diet: Regular Malnutrition Evaluation (11/23/18) The patient does not meet criteria for a specified degree of malnutrition at this time. Will re-evaluate at follow-up as appropriate. Diet Education Needs Assessment: Diet education not indicated. Nutrition Care Level: Low Signed: Flor Calvin RD, LD, [facility]
--- NOTE | 2018-11-23 19:15 | NUR ---
Patient received siting up in bed. Family members at bedside. No acute distress noted. Call light within reach.
[2018-11-24] VITALS (8 sets, daily range): BP systolic 110–140; BP diastolic 75–90
[2018-11-24] MEDS: PIPER-TAZ 3.375 GM 50 ML IV SCH ×3 (06:00→22:00)
[2018-11-24] MEDS: MORPHINE SULFATE INJ 4 MG/ML INJ 1ML IV PRN (06:18)
--- NOTE | 2018-11-24 06:42 | NUR ---
Patient's IV infiltrated on right hand. New IV inserted in right forearm 20G. Patient tolerated well.
--- NOTE | 2018-11-24 07:11 | NUR ---
pt alert resp even and unlabored at this time no distress noted, family member at bedside, pt able to make needs known, call light in reach.
[2018-11-24] MEDS: TACROLIMUS 1 MG CAP PO SCH ×2 (09:00→21:03)
[2018-11-24] MEDS: NORTREL PO SCH (09:00)
[2018-11-24] MEDS: MYCOPHENOLATE MOFETIL 250 MG CAP PO SCH ×2 (09:00→17:48)
[2018-11-24] MEDS: VANCOMYCIN 1GM/NS 250 ML 250 ML IV SCH ×2 (10:45→22:45)
--- NOTE | 2018-11-24 19:12 | NUR ---
report given to oncoming nurse, for continued care.
[2018-11-25] VITALS: BP 121/80
[2018-11-25 04:00] VITALS: BP 114/75
[2018-11-25] MEDS: PIPER-TAZ 3.375 GM 50 ML IV SCH ×2 (05:45→14:00)
[2018-11-25 05:58] LABS: BASOPHILS % 0.3 % (0.0-1.0); EOSINOPHILS # (AUTO) 0.2 (0.0-0.4); EOSINOPHILS % 1.3 % (0.0-6.0); HEMATOCRIT 38.9 % (34.2-44.1); HEMOGLOBIN 12.6 g/dL (12.0-16.0); LYMPHOCYTES # (AUTO) 4.3 (1.0-3.2); LYMPHOCYTES % 34.4 % (18.0-39.1); MEAN CORPUSCULAR HEMOGLOBIN 25.7 pg (28-32); MEAN CORPUSCULAR HGB CONC 32.4 g/dL (31-35); MEAN CORPUSCULAR VOLUME 79.4 fL (81-99); MONOCYTES # (AUTO) 0.7 (0.2-0.8); MONOCYTES % 5.8 % (4.4-11.3); NEUTROPHILS # (AUTO) 7.3 (2.1-6.9); NEUTROPHILS % 57.9 % (38.7-80.0); PLATELET COUNT 162 x10e3/uL (140-360); RED CELL DISTRIBUTION WIDTH 13.1 % (11.7-14.4)
[2018-11-25 06:13] LABS: ANION GAP 12.1 mmol/L (8-16); BLOOD UREA NITROGEN 7 mg/dL (7-26); BUN/CREATININE RATIO 9 (6-25); CALCIUM 9.1 mg/dL (8.4-10.2); CARBON DIOXIDE 23 mmol/L (22-29); CHLORIDE 105 mmol/L (98-107); EST GLOMERULAR FILTRATION RATE > 60 ML/MIN (60-); GLUCOSE 93 mg/dL (74-118); POTASSIUM 4.1 mmol/L (3.5-5.1); SODIUM 136 mmol/L (136-145)
[2018-11-25 07:50] LABS: PLATELET ESTIMATE ADEQUATE; PLATELET MORPHOLOGY COMMENT MANY LARGE; RBC MORPHOLOGY COMMENT NORMAL
[2018-11-25 08:00] VITALS: BP 113/74
[2018-11-25 08:30] VITALS: BP 113/74
[2018-11-25] MEDS: TACROLIMUS 1 MG CAP PO SCH (08:34)
[2018-11-25] MEDS: MYCOPHENOLATE MOFETIL 250 MG CAP PO SCH ×2 (08:34→17:36)
[2018-11-25] MEDS: NORTREL PO SCH (08:48)
[2018-11-25] MEDS ORDERED: ONDANSETRON HCL 4 MG ORAL DISINTEGRATING TAB PO PRN (09:45)
[2018-11-25] MEDS: VANCOMYCIN 1GM/NS 250 ML 250 ML IV SCH (11:07)
[2018-11-25 12:00] VITALS: BP 145/63
[2018-11-25] MEDS ORDERED: AUGMENTIN 875-1 EACH PO (16:12)
[2018-11-25 16:59] VITALS: BP 113/78
--- NOTE | 2018-11-25 17:50 | NUR ---
PIV removed with tip intact. escorted to front lobby entrance with father, refused wheelchair and preferred to ambulate to door. all personal belongings, RX and d/c instructions in hand at time of d/c.
== END 2018-11-25 17:52 | disposition home or self-care (01) | DRG 872 ==
LOC: ER 19:44 → ERHOLD 23:08 → MED/SURG2 11-22 00:40
PROVIDERS: ADMIT Internal Medicine; ATTEND Internal Medicine
DX: A41.9 Sepsis, unspecified organism (principal); L03.211 Cellulitis of face; Z68.41 Body mass index [BMI] 40.0-44.9, adult; K75.9 Inflammatory liver disease, unspecified; K11.21 Acute sialoadenitis; R59.1 Generalized enlarged lymph nodes; K75.4 Autoimmune hepatitis; E66.9 Obesity, unspecified; R13.10 Dysphagia, unspecified; Z79.899 Other long term (current) drug therapy
CPT/HCPCS: 36415; 70491; 80048; 80053; 80202; 82948; 83518; 84702; 85025; 86308; 87070; 96360; 96361; 99284; J2270; J2405; J2543; J3370; J7030; J7507; Q9967